=== PATIENT | male | born 1955 | race African-American/Black ===

== ENCOUNTER 2017-06-18 03:59 | Inpatient (IN) | payer OTHER, MEDICAID ==
[2017-06-18] VITALS (10 sets, daily range): BP systolic 168–206; BP diastolic 97–140
[~2017-06-18] VITALS: Ht 172.7 cm; Wt 92.3 kg
[2017-06-18] MEDS ORDERED: HYDRALAZINE 20MG/ML VIAL IV ONE (05:15)
[2017-06-18] MEDS ORDERED: CLONIDINE 0.2MG TABLET PO ONE (05:15)
[2017-06-18 05:36] LABS: BASOPHILS % 0.9 % (0.0-2.0); EOSINOPHILS % 1.8 % (0.0-5.0); HEMATOCRIT. 24.9 % (42.0-52.0); HEMOGLOBIN. 8.3 g/dL (14.0-18.0); LYMPHOCYTES % 15.2 % (20.0-50.0); MEAN CORPUSCULAR HEMOGLOBIN 32.9 pg (28.0-32.0); MEAN CORPUSCULAR VOLUME 98.6 fL (80.0-94.0); MEAN PLATELET VOLUME 9.2 fl (7.4-10.4); MONOCYTES % 6.8 % (2.0-8.0); NEUTROPHILS % 75.3 % (40.0-76.0); PLATELET 250 x1000/uL (130-400); RED BLOOD CELL COUNT 2.52 mill/uL (4.7-6.1); RED CELL DISTRIBUTION WIDTH 14.5 % (11.6-14.6)
[2017-06-18 05:42] LABS: CHLORIDE 96 mEq/L (98-107)
[2017-06-18 05:56] LABS: CARBON DIOXIDE 22 mEq/L (21-32)
[2017-06-18] MEDS ORDERED: ONDANSETRON HCL 4MG/2ML VIAL IV ONE (06:15)
[2017-06-18] MEDS ORDERED: MORPHINE SULFATE 4 MG/ML CPJ (NOT FOR IM USE) IV ONE (06:15)
[2017-06-18] MEDS ORDERED: SODIUM BICARBONATE 8.4% 1 MEQ/ML 50ML SYR IV ONE (06:45)
[2017-06-18] MEDS ORDERED: MAGNESIUM/ALUMINUM HYDROXIDE/SIMETHICONE 30ML UDC PO ONE (06:45)
[2017-06-18] MEDS ORDERED: ALBUTEROL (0.083%) 2.5MG/3ML NEB HHN ONE (06:45)
[2017-06-18] MEDS ORDERED: INSULIN REGULAR (HUMULIN R) 300UNITS/3ML IV ONE (06:45)
[2017-06-18] MEDS ORDERED: SODIUM POLYSTYRENE SULFONATE 15 G/60 ML BOT PO ONE (06:45)
[2017-06-18] MEDS ORDERED: DEXTROSE 50% WATER 50ML SYRINGE IV ONE (06:45)
[2017-06-18] MEDS ORDERED: CALCIUM CHLORIDE 1GM/10ML SYR IV ONE (06:45)
[2017-06-18] MEDS ORDERED: IPRATROPIUM/ALBUTEROL 0.5-3(2.5)MG/3ML NEB INH PRN (10:30)
[2017-06-18] MEDS ORDERED: NITROGLYCERIN 0.4MG TABLET SL SL PRN (10:30)
[2017-06-18] MEDS ORDERED: GUAIFENESIN 200MG/10ML SUGAR FREE UDC PO PRN (10:30)
[2017-06-18] MEDS ORDERED: MAGNESIUM/ALUMINUM HYDROXIDE/SIMETHICONE 30ML UDC PO PRN (10:30)
[2017-06-18] MEDS: ENOXAPARIN 40MG/0.4ML SYR SUBCUT SCH (10:30)
[2017-06-18] MEDS ORDERED: TRAMADOL 50MG TABLET PO PRN (10:30)
[2017-06-18] MEDS ORDERED: ZOLPIDEM TARTRATE 5MG TABLET PO PRN (10:30)
[2017-06-18] MEDS ORDERED: MORPHINE SULFATE 4 MG/ML CPJ (NOT FOR IM USE) IV PRN (10:30)
[2017-06-18] MEDS ORDERED: DOCUSATE SODIUM 100MG CAPSULE PO PRN (10:30)
[2017-06-18] MEDS ORDERED: ONDANSETRON HCL 4MG/2ML VIAL IV PRN (10:30)
[2017-06-18] MEDS ORDERED: ACETAMINOPHEN 325MG TABLET PO PRN (10:30)
[2017-06-18] MEDS ORDERED: LORAZEPAM 0.5MG TABLET PO PRN (10:30)
[2017-06-18] MEDS ORDERED: NA PHOS,M-B/NA PHOS,DI-BA ENEMA 118ML PR PRN (10:30)
[2017-06-18] MEDS ORDERED: DIPHENHYDRAMINE 50MG/ML VIAL IV PRN (10:30)
[2017-06-18] MEDS: SEVELAMER CARBONATE 800 MG TABLET PO SCH ×2 (13:26→17:59)
[2017-06-18] MEDS: HYDRALAZINE HCL 50MG TABLET PO SCH ×2 (13:26→21:43)
[2017-06-18] MEDS: CLONIDINE 0.1MG TABLET PO PRN (15:49)
[2017-06-18 16:59] LABS: CREATINE KINASE MB FRACTION 2.4 ng/mL (0.5-3.6); TROPONIN I 0.12 ng/mL (0.00-0.04)
[2017-06-18] MEDS: AMLODIPINE 10MG TABLET PO SCH (17:11)
[2017-06-18] MEDS ORDERED: EPOETIN ALFA 10000UNITS/ML VIAL SUBCUT SCH (21:00)
[2017-06-18] MEDS: METOPROLOL TARTRATE 25MG TABLET PO SCH (21:43)
[2017-06-18] MEDS: MINOXIDIL 2.5MG TABLET PO SCH (21:44)
[2017-06-18 23:24] LABS: CREATINE KINASE MB FRACTION 1.8 ng/mL (0.5-3.6); TROPONIN I 0.17 ng/mL (0.00-0.04)
[2017-06-19] VITALS (14 sets, daily range): BP systolic 140–179; BP diastolic 60–99
[2017-06-19] MEDS: CLONIDINE 0.1MG TABLET PO PRN (01:08)
[2017-06-19] MEDS: HYDRALAZINE HCL 50MG TABLET PO SCH ×3 (06:27→21:16)
[2017-06-19 07:16] LABS: BASOPHILS % 0.9 % (0.0-2.0); EOSINOPHILS % 2.3 % (0.0-5.0); HEMATOCRIT. 21.7 % (42.0-52.0); HEMOGLOBIN. 7.4 g/dL (14.0-18.0); LYMPHOCYTES % 15.2 % (20.0-50.0); MEAN CORPUSCULAR VOLUME 97.2 fL (80.0-94.0); MEAN PLATELET VOLUME 9.6 fl (7.4-10.4); NEUTROPHILS % 69.6 % (40.0-76.0); PLATELET 188 x1000/uL (130-400); RED BLOOD CELL COUNT 2.23 mill/uL (4.7-6.1); RED CELL DISTRIBUTION WIDTH 14.2 % (11.6-14.6)
[2017-06-19] MEDS: SEVELAMER CARBONATE 800 MG TABLET PO SCH ×3 (08:00→19:04)
[2017-06-19] MEDS: ENOXAPARIN 40MG/0.4ML SYR SUBCUT SCH (09:00)
[2017-06-19] MEDS: MINOXIDIL 2.5MG TABLET PO SCH (09:00)
[2017-06-19] MEDS: FOLIC ACID/VITAMIN B COMP W-C TABLET PO SCH (09:00)
[2017-06-19] MEDS: AMLODIPINE 10MG TABLET PO SCH (09:00)
[2017-06-19] MEDS: METOPROLOL TARTRATE 25MG TABLET PO SCH ×2 (09:00→21:16)
[2017-06-19] MEDS: ASPIRIN 325MG EC TABLET PO SCH (09:00)
[2017-06-19] MEDS: PANTOPRAZOLE SODIUM 40 MG/VIAL IV SCH (09:13)
[2017-06-19 12:37] LABS: HEMATOCRIT 21.9 % (42.0-52.0); HEMOGLOBIN 7.3 g/dL (14.0-18.0)
[2017-06-19] MEDS: MINOXIDIL 10MG TABLET PO SCH (21:17)
[2017-06-20] VITALS (17 sets, daily range): BP systolic 118–165; BP diastolic 62–90
[2017-06-20] MEDS: CLONIDINE 0.1MG TABLET PO PRN (02:18)
[2017-06-20] MEDS: HYDRALAZINE HCL 50MG TABLET PO SCH ×3 (06:55→22:18)
[2017-06-20] MEDS: SEVELAMER CARBONATE 800 MG TABLET PO SCH ×2 (09:00→18:35)
[2017-06-20] MEDS: ASPIRIN 325MG EC TABLET PO SCH (09:00)
[2017-06-20] MEDS: ENOXAPARIN 40MG/0.4ML SYR SUBCUT SCH (09:00)
[2017-06-20] MEDS: PANTOPRAZOLE SODIUM 40 MG/VIAL IV SCH (09:01)
[2017-06-20] MEDS: METOPROLOL TARTRATE 25MG TABLET PO SCH (09:01)
[2017-06-20] MEDS: AMLODIPINE 10MG TABLET PO SCH (09:02)
[2017-06-20] MEDS: FOLIC ACID/VITAMIN B COMP W-C TABLET PO SCH (09:02)
[2017-06-20] MEDS: MINOXIDIL 10MG TABLET PO SCH ×2 (09:12→22:15)
[2017-06-20] MEDS ORDERED: METOPROLOL TARTRATE 25MG TABLET PO NR (09:52)
[2017-06-20 10:00] LABS: BASOPHILS % 1.2 % (0.0-2.0); EOSINOPHILS % 6.3 % (0.0-5.0); HEMATOCRIT. 25.5 % (42.0-52.0); HEMOGLOBIN. 8.5 g/dL (14.0-18.0); LYMPHOCYTES % 12.7 % (20.0-50.0); MEAN CORPUSCULAR HEMOGLOBIN 32.3 pg (28.0-32.0); MEAN CORPUSCULAR VOLUME 97.2 fL (80.0-94.0); MEAN PLATELET VOLUME 9.1 fl (7.4-10.4); MONOCYTES % 12.5 % (2.0-8.0); NEUTROPHILS % 67.3 % (40.0-76.0); PLATELET 219 x1000/uL (130-400); RED BLOOD CELL COUNT 2.62 mill/uL (4.7-6.1); RED CELL DISTRIBUTION WIDTH 14.6 % (11.6-14.6)
[2017-06-20 10:50] LABS: CREATINE KINASE MB FRACTION 1.8 ng/mL (0.5-3.6); TROPONIN I 0.29 ng/mL (0.00-0.04)
[2017-06-20] MEDS: METOPROLOL TARTRATE 50MG TABLET PO SCH (22:15)
[2017-06-21] VITALS: BP 127/71
[2017-06-21 04:00] VITALS: BP 120/69
[2017-06-21 06:00] VITALS: BP 139/76
[2017-06-21] MEDS: HYDRALAZINE HCL 50MG TABLET PO SCH (06:03)
[2017-06-21 08:00] VITALS: BP 143/86
[2017-06-21] MEDS: PANTOPRAZOLE SODIUM 40 MG/VIAL IV SCH (08:53)
[2017-06-21] MEDS: METOPROLOL TARTRATE 50MG TABLET PO SCH (08:53)
[2017-06-21] MEDS: MINOXIDIL 10MG TABLET PO SCH (08:56)
[2017-06-21] MEDS: FOLIC ACID/VITAMIN B COMP W-C TABLET PO SCH (08:56)
[2017-06-21] MEDS: SEVELAMER CARBONATE 800 MG TABLET PO SCH (08:56)
[2017-06-21] MEDS: AMLODIPINE 10MG TABLET PO SCH (08:56)
[2017-06-21] MEDS: ENOXAPARIN 40MG/0.4ML SYR SUBCUT SCH (08:56)
[2017-06-21] MEDS: ASPIRIN 325MG EC TABLET PO SCH (08:57)
[2017-06-21 10:00] VITALS: BP 145/80
[2017-06-21 11:10] VITALS: BP 145/80
[2017-06-25] MEDS ORDERED: NEPVIT PO (12:30)
[2017-06-25] MEDS ORDERED: ASPI-1159 PO (12:30)
[2017-06-25] MEDS ORDERED: DILT240C91 PO (12:30)
[2017-06-25] MEDS ORDERED: HYDR-4134 PO (12:30)
[2017-06-25] MEDS ORDERED: HYDR-4001 PO (12:34)
== END 2017-06-21 11:35 | disposition home or self-care (01) | DRG 291 ==
LOC: ER 04:05 → 5EST 07:03 → EDBEDREQ 07:06 → EDBEDREQSVC 07:06 → ENRESERV 07:40
PROVIDERS: ADMIT Internal Medicine; ATTEND Internal Medicine
PROC: 5A1D70Z Performance of Urinary Filtration, Intermittent, Less than 6 Hours Per Day (ICD-10-PCS; 2017-06-18)
PROC: 30233N1 Transfusion of Nonautologous Red Blood Cells into Peripheral Vein, Percutaneous Approach (ICD-10-PCS; principal; 2017-06-19)
PROC: 5A1D70Z Performance of Urinary Filtration, Intermittent, Less than 6 Hours Per Day (ICD-10-PCS; 2017-06-19)
DX: I13.2 Hypertensive heart and chronic kidney disease with heart failure and with stage 5 chronic kidney disease, or end stage renal disease (principal); I50.33 Acute on chronic diastolic (congestive) heart failure; E87.1 Hypo-osmolality and hyponatremia; N18.6 End stage renal disease; D63.8 Anemia in other chronic diseases classified elsewhere; E87.5 Hyperkalemia; I48.0 Paroxysmal atrial fibrillation; E78.00 Pure hypercholesterolemia, unspecified; Z99.2 Dependence on renal dialysis; Z79.899 Other long term (current) drug therapy; Z86.19 Personal history of other infectious and parasitic diseases
CPT/HCPCS: 36415; 71045; 80048; 80053; 80061; 82550; 82553; 83036; 84484; 85014; 85018; 85025; 86850; 86900; 86920; 93005; 93306; 94640; 96374; 96375; 99285; C9113; J0360; J0885; J1650; J1815; J2270; J2405; J3490; J7030; J7040; J7611; P9016

== ENCOUNTER 2017-06-22 06:46 | Inpatient (IN) | payer BC, MEDICAID, OTHER ==
[~2017-06-22] VITALS: Ht 175.3 cm; Wt 100.7 kg
[2017-06-22] MEDS ORDERED: ASPIRIN 81MG TABLET PO ONE (07:00)
[2017-06-22] MEDS ORDERED: NITROGLYCERIN OINT 1GM/INCH UDPKT TD ONE (07:00)
[2017-06-22] MEDS ORDERED: DILTIAZEM HCL 5MG/ML 5ML VIAL IV ONE (07:00)
[2017-06-22 07:35] LABS: INR 1.1; PARTIAL THROMBOPLASTIN TIME 32.9 sec (23.4-31.0); PROTHROMBIN TIME 11.1 sec (9.4-11.6)
[2017-06-22 07:48] LABS: CARBON DIOXIDE 29 mEq/L (21-32); CHLORIDE 96 mEq/L (98-107)
[2017-06-22 07:49] LABS: BASOPHILS % 0.5 % (0.0-2.0); HEMATOCRIT. 24.7 % (42.0-52.0); HEMOGLOBIN. 8.3 g/dL (14.0-18.0); LYMPHOCYTES % 11.6 % (20.0-50.0); MEAN CORPUSCULAR HEMOGLOBIN 32.7 pg (28.0-32.0); MEAN CORPUSCULAR VOLUME 97.4 fL (80.0-94.0); MEAN PLATELET VOLUME 9.2 fl (7.4-10.4); MONOCYTES % 14.4 % (2.0-8.0); NEUTROPHILS % 70.5 % (40.0-76.0); PLATELET 224 x1000/uL (130-400); RED BLOOD CELL COUNT 2.54 mill/uL (4.7-6.1); RED CELL DISTRIBUTION WIDTH 14.7 % (11.6-14.6)
[2017-06-22 08:01] LABS: TROPONIN I 0.69 ng/mL (0.00-0.04)
[2017-06-22] MEDS ORDERED: HYDROCODONE/ACETAMINOPHEN 5/325MG TABLET PO PRN (11:15)
[2017-06-22] MEDS ORDERED: ONDANSETRON HCL 4MG/2ML VIAL IV PRN (11:15)
[2017-06-22] MEDS ORDERED: ACETAMINOPHEN 325MG TABLET PO PRN (11:15)
[2017-06-22] MEDS ORDERED: MAGNESIUM/ALUMINUM HYDROXIDE/SIMETHICONE 30ML UDC PO PRN (11:15)
[2017-06-22] MEDS ORDERED: DOCUSATE SODIUM 100MG CAPSULE PO PRN (11:15)
[2017-06-22] MEDS ORDERED: IPRATROPIUM/ALBUTEROL 0.5-3(2.5)MG/3ML NEB INH PRN (11:15)
[2017-06-22 15:51] VITALS: BP 142/79
[2017-06-22 16:00] VITALS: BP 137/81
[2017-06-22] MEDS: DILTIAZEM HCL 60MG TABLET PO SCH ×2 (16:03→21:25)
[2017-06-22 17:50] VITALS: BP 139/84
[2017-06-22 20:00] VITALS: BP 131/64
[2017-06-22 20:11] LABS: TROPONIN I 0.67 ng/mL (0.00-0.04)
[2017-06-22 20:14] LABS: CREATINE KINASE MB FRACTION 1.4 ng/mL (0.5-3.6)
[2017-06-22 22:00] VITALS: BP 138/98
[2017-06-22] MEDS: CLONIDINE 0.1MG TABLET PO PRN (22:06)
[2017-06-23] VITALS (14 sets, daily range): BP systolic 118–160; BP diastolic 67–98
[2017-06-23 00:01] LABS: CREATINE KINASE MB FRACTION 1.3 ng/mL (0.5-3.6)
[2017-06-23 00:06] LABS: TROPONIN I 0.6 ng/mL (0.00-0.04)
[2017-06-23] MEDS: DILTIAZEM HCL 60MG TABLET PO SCH ×3 (06:44→21:08)
[2017-06-23 07:18] LABS: BASOPHILS % 0.8 % (0.0-2.0); EOSINOPHILS % 3.4 % (0.0-5.0); HEMATOCRIT. 22.2 % (42.0-52.0); HEMOGLOBIN. 7.4 g/dL (14.0-18.0); LYMPHOCYTES % 12.6 % (20.0-50.0); MEAN CORPUSCULAR HEMOGLOBIN 32.6 pg (28.0-32.0); MEAN CORPUSCULAR VOLUME 97.5 fL (80.0-94.0); MEAN PLATELET VOLUME 9.4 fl (7.4-10.4); MONOCYTES % 14.3 % (2.0-8.0); NEUTROPHILS % 68.9 % (40.0-76.0); PLATELET 212 x1000/uL (130-400); RED BLOOD CELL COUNT 2.28 mill/uL (4.7-6.1); RED CELL DISTRIBUTION WIDTH 14.3 % (11.6-14.6)
[2017-06-23 08:03] LABS: TROPONIN I 0.54 ng/mL (0.00-0.04)
[2017-06-23] MEDS ORDERED: ASPIRIN 81MG EC TABLET PO SCH (09:00)
[2017-06-23] MEDS ORDERED: EPOETIN ALFA 10000UNITS/ML VIAL SUBCUT NR (21:00)
[2017-06-24] VITALS (18 sets, daily range): BP systolic 145–195; BP diastolic 72–122
[2017-06-24] MEDS: CLONIDINE 0.1MG TABLET PO PRN ×2 (05:03→17:33)
[2017-06-24] MEDS: DILTIAZEM HCL 60MG TABLET PO SCH ×3 (06:00→22:34)
[2017-06-24 06:55] LABS: BASOPHILS % 0.4 % (0.0-2.0); EOSINOPHILS % 3.5 % (0.0-5.0); HEMATOCRIT. 23.1 % (42.0-52.0); HEMOGLOBIN. 7.8 g/dL (14.0-18.0); LYMPHOCYTES % 11.2 % (20.0-50.0); MEAN CORPUSCULAR HEMOGLOBIN 32.9 pg (28.0-32.0); MEAN CORPUSCULAR VOLUME 96.8 fL (80.0-94.0); MEAN PLATELET VOLUME 9.5 fl (7.4-10.4); NEUTROPHILS % 70.9 % (40.0-76.0); PLATELET 217 x1000/uL (130-400); RED BLOOD CELL COUNT 2.39 mill/uL (4.7-6.1); RED CELL DISTRIBUTION WIDTH 14.3 % (11.6-14.6)
[2017-06-25] VITALS (16 sets, daily range): BP systolic 152–195; BP diastolic 79–114
[2017-06-25 06:10] LABS: BASOPHILS % 0.8 % (0.0-2.0); EOSINOPHILS % 4.8 % (0.0-5.0); HEMATOCRIT. 23.7 % (42.0-52.0); LYMPHOCYTES % 10.6 % (20.0-50.0); MEAN CORPUSCULAR VOLUME 95.2 fL (80.0-94.0); MEAN PLATELET VOLUME 9.5 fl (7.4-10.4); MONOCYTES % 13.3 % (2.0-8.0); NEUTROPHILS % 70.5 % (40.0-76.0); PLATELET 212 x1000/uL (130-400); RED BLOOD CELL COUNT 2.49 mill/uL (4.7-6.1); RED CELL DISTRIBUTION WIDTH 14.5 % (11.6-14.6)
[2017-06-25] MEDS: DILTIAZEM HCL 60MG TABLET PO SCH ×3 (06:16→14:09)
[2017-06-25] MEDS: CLONIDINE 0.1MG TABLET PO PRN (08:32)
[2017-06-25] MEDS ORDERED: NEPVIT PO (12:30)
[2017-06-25] MEDS ORDERED: DILT240C91 PO (12:30)
[2017-06-25] MEDS ORDERED: ASPI-1159 PO (12:30)
[2017-06-25] MEDS ORDERED: HYDR-4134 PO (12:30)
[2017-06-25] MEDS ORDERED: HYDR-4001 PO (12:34)
[2017-06-25] MEDS ORDERED: EPOETIN ALFA 10000UNITS/ML VIAL SUBCUT NR (21:00)
== END 2017-06-25 20:31 | disposition home or self-care (01) | DRG 308 ==
LOC: ER 07:00 → 3WST 08:24 → EDBEDREQTM 08:36 → EDBEDREQ 08:36 → ENRESERV 14:10
PROVIDERS: ADMIT Internal Medicine; ATTEND Internal Medicine
PROC: 5A1D70Z Performance of Urinary Filtration, Intermittent, Less than 6 Hours Per Day (ICD-10-PCS; principal; 2017-06-24)
PROC: 30233N1 Transfusion of Nonautologous Red Blood Cells into Peripheral Vein, Percutaneous Approach (ICD-10-PCS; 2017-06-24)
PROC: 5A1D70Z Performance of Urinary Filtration, Intermittent, Less than 6 Hours Per Day (ICD-10-PCS; 2017-06-25)
DX: I48.0 Paroxysmal atrial fibrillation (principal); N18.6 End stage renal disease; I13.2 Hypertensive heart and chronic kidney disease with heart failure and with stage 5 chronic kidney disease, or end stage renal disease; I27.20 Pulmonary hypertension, unspecified; I42.0 Dilated cardiomyopathy; I50.42 Chronic combined systolic (congestive) and diastolic (congestive) heart failure; D63.1 Anemia in chronic kidney disease; E78.00 Pure hypercholesterolemia, unspecified; I35.1 Nonrheumatic aortic (valve) insufficiency; Z79.82 Long term (current) use of aspirin; Z99.2 Dependence on renal dialysis
CPT/HCPCS: 36415; 71045; 80048; 80053; 80061; 82270; 82550; 82553; 84443; 84484; 85025; 85610; 85730; 86850; 86900; 86920; 87040; 93005; 93970; 99285; J0885; J3490; P9016

== ENCOUNTER 2017-08-10 05:28 | Inpatient (IN) | payer OTHER, MEDICAID ==
[~2017-08-10] VITALS: Ht 175.3 cm; Wt 92.1 kg
[2017-08-10] VITALS (44 sets, daily range): BP systolic 139–161; BP diastolic 75–90
[~2017-08-10 05:28] MED LIST: ASPI-1159 PO; DILT240C91 PO; HYDR-4001 PO; HYDR-4134 PO; NEPVIT PO
[2017-08-10] MEDS ORDERED: LABETALOL 5MG/ML SYR 20 MG/4 ML SYRINGE IV ONE (06:15)
[2017-08-10] MEDS ORDERED: NICARDIPINE 100 MG in SODIUM CHLORIDE 0.9% 60 ML IV STA ×2 (06:23→06:54)
[2017-08-10] MEDS ORDERED: NICARDIPINE 40MG/200ML PREMIX 200 ML IV ONE (06:46)
[2017-08-10] MEDS ORDERED: PHENYTOIN SODIUM 500 MG in SODIUM CHLORIDE 0.9% 50 ML IV ONE (07:00)
[2017-08-10] MEDS ORDERED: ONDANSETRON HCL 4MG/2ML VIAL IV PRN ×2 (07:15→09:00)
[2017-08-10 07:27] LABS: HEMATOCRIT. 31.5 % (42.0-52.0); HEMOGLOBIN. 10.5 g/dL (14.0-18.0); MEAN CORPUSCULAR HEMOGLOBIN 32.5 pg (28.0-32.0); MEAN CORPUSCULAR VOLUME 97.4 fL (80.0-94.0); MEAN PLATELET VOLUME 8.8 fl (7.4-10.4); PLATELET 217 x1000/uL (130-400); RED BLOOD CELL COUNT 3.23 mill/uL (4.7-6.1); RED CELL DISTRIBUTION WIDTH 14.9 % (11.6-14.6)
[2017-08-10 07:30] LABS: INR 1.1; PARTIAL THROMBOPLASTIN TIME 32.8 sec (23.4-31.0); PROTHROMBIN TIME 10.9 sec (9.4-11.6)
[2017-08-10 07:31] LABS: CHLORIDE 98 mEq/L (98-107)
[2017-08-10 07:37] LABS: PHOSPHORUS 7.8 mg/dL (2.5-4.9)
[2017-08-10 07:59] LABS: PLATELET ESTIMATE NORMAL
[2017-08-10] MEDS ORDERED: CALCIUM CHLORIDE 1GM/10ML SYR IV ONE (08:00)
[2017-08-10] MEDS ORDERED: INSULIN REGULAR (HUMULIN R) 300UNITS/3ML IV ONE (08:00)
[2017-08-10] MEDS ORDERED: DEXTROSE 50% WATER 50ML SYRINGE IV ONE (08:00)
[2017-08-10] MEDS ORDERED: SODIUM BICARBONATE 8.4% 1 MEQ/ML 50ML SYR IV ONE (08:00)
[2017-08-10] MEDS ORDERED: GUAIFENESIN 200MG/10ML SUGAR FREE UDC PO PRN (09:00)
[2017-08-10] MEDS ORDERED: LORAZEPAM 2MG/ML CPJ IV PRN (09:00)
[2017-08-10] MEDS ORDERED: NA PHOS,M-B/NA PHOS,DI-BA ENEMA 118ML PR PRN (09:00)
[2017-08-10] MEDS ORDERED: ACETAMINOPHEN 650MG SUPP PR PRN (09:00)
[2017-08-10] MEDS ORDERED: IPRATROPIUM/ALBUTEROL 0.5-3(2.5)MG/3ML NEB INH PRN (09:00)
[2017-08-10] MEDS ORDERED: DIPHENHYDRAMINE 50MG/ML VIAL IV PRN (09:00)
[2017-08-10] MEDS ORDERED: FAMOTIDINE 20MG/2ML VIAL IV SCH (09:00)
[2017-08-10] MEDS ORDERED: NICARDIPINE 100 MG in SODIUM CHLORIDE 0.9% 60 ML IV PRN (09:34)
[2017-08-10] MEDS ORDERED: FENTANYL CITRATE/PF 50MCG/ML 2ML VIAL IV ONE (09:45)
[2017-08-10] MEDS ORDERED: ONDANSETRON HCL 4MG/2ML VIAL IV ONE (09:45)
[2017-08-10] MEDS: NICARDIPINE 100 MG in SODIUM CHLORIDE 0.9% 60 ML IV PRN ×3 (10:36→21:47)
[2017-08-10] MEDS: FAMOTIDINE 20MG/2ML VIAL IV SCH (12:47)
[2017-08-10] MEDS: DEXAMETHASONE 4MG/ML 1ML VIAL IV SCH ×2 (12:48→17:05)
[2017-08-10] MEDS: DEXT 5%/LACTATED RINGERS 1,000 ML IV SCH ×2 (16:17→22:07)
[2017-08-10] MEDS: PHENYTOIN SODIUM 100MG/2ML VIAL IV SCH ×2 (16:26→21:02)
[2017-08-10] MEDS ORDERED: LABETALOL 5MG/ML SYR 20 MG/4 ML SYRINGE IV NR (19:00)
[2017-08-11] VITALS (79 sets, daily range): BP systolic 131–158; BP diastolic 54–92
[2017-08-11] MEDS: DEXAMETHASONE 4MG/ML 1ML VIAL IV SCH ×5 (00:18→22:51)
[2017-08-11] MEDS: NICARDIPINE 100 MG in SODIUM CHLORIDE 0.9% 60 ML IV PRN ×3 (04:36→22:47)
[2017-08-11] MEDS: PHENYTOIN SODIUM 100MG/2ML VIAL IV SCH (06:17)
[2017-08-11] MEDS: DEXT 5%/LACTATED RINGERS 1,000 ML IV SCH (06:23)
[2017-08-11 09:27] LABS: MEAN CORPUSCULAR HEMOGLOBIN 32.4 pg (28.0-32.0); MEAN PLATELET VOLUME 8.9 fl (7.4-10.4); PLATELET 203 x1000/uL (130-400); RED CELL DISTRIBUTION WIDTH 15.3 % (11.6-14.6)
[2017-08-11] MEDS: FAMOTIDINE 20MG/2ML VIAL IV SCH (09:59)
[2017-08-11] MEDS: DOCUSATE SODIUM 250MG CAPSULE PO SCH (10:30)
[2017-08-11] MEDS: HYDRALAZINE HCL 25MG TABLET PO SCH ×2 (12:45→21:14)
[2017-08-11] MEDS: DILTIAZEM HCL 240MG ER (24HR) PO SCH (12:46)
[2017-08-11 12:52] LABS: PLATELET ESTIMATE NORMAL
[2017-08-11] MEDS: PHENYTOIN SODIUM EXTENDED 100MG CAPSULE PO SCH ×2 (13:39→21:14)
[2017-08-11] MEDS: MINOXIDIL 2.5MG TABLET PO SCH (21:35)
[2017-08-12] VITALS (91 sets, daily range): BP systolic 128–174; BP diastolic 52–100
[2017-08-12] MEDS: PHENYTOIN SODIUM EXTENDED 100MG CAPSULE PO SCH ×3 (05:12→21:44)
[2017-08-12] MEDS: HYDRALAZINE HCL 25MG TABLET PO SCH ×3 (05:12→21:44)
[2017-08-12] MEDS: DEXAMETHASONE 4MG/ML 1ML VIAL IV SCH (05:12)
[2017-08-12 05:46] LABS: HEMATOCRIT. 30.2 % (42.0-52.0); HEMOGLOBIN. 10.3 g/dL (14.0-18.0); MEAN CORPUSCULAR HEMOGLOBIN 33.1 pg (28.0-32.0); MEAN CORPUSCULAR VOLUME 96.8 fL (80.0-94.0); MEAN PLATELET VOLUME 9.3 fl (7.4-10.4); PLATELET 245 x1000/uL (130-400); RED BLOOD CELL COUNT 3.12 mill/uL (4.7-6.1); RED CELL DISTRIBUTION WIDTH 14.9 % (11.6-14.6)
[2017-08-12] MEDS: MINOXIDIL 2.5MG TABLET PO SCH ×2 (08:05→20:37)
[2017-08-12] MEDS: DOCUSATE SODIUM 250MG CAPSULE PO SCH (08:05)
[2017-08-12] MEDS: DILTIAZEM HCL 240MG ER (24HR) PO SCH (08:05)
[2017-08-12] MEDS: FAMOTIDINE 20MG/2ML VIAL IV SCH (08:05)
[2017-08-12 08:32] LABS: PLATELET ESTIMATE NORMAL
[2017-08-12] MEDS: NICARDIPINE 100 MG in SODIUM CHLORIDE 0.9% 60 ML IV PRN (09:50)
[2017-08-12] MEDS: CLONIDINE 0.1MG TABLET PO PRN ×3 (12:03→21:44)
[2017-08-12] MEDS ORDERED: MINOXIDIL 2.5MG TABLET PO SCH (12:45)
[2017-08-12] MEDS ORDERED: DEXAMETHASONE 4MG/ML 1ML VIAL IV SCH (18:00)
[2017-08-12] MEDS: ATORVASTATIN CALCIUM 20MG TABLET PO SCH (21:00)
[2017-08-12] MEDS: HYDRALAZINE HCL 50MG TABLET PO SCH (22:00)
[2017-08-13 04:00] VITALS: BP 172/88
[2017-08-13] MEDS ORDERED: DEXAMETHASONE 4MG/ML 1ML VIAL IV SCH (06:00)
[2017-08-13 07:09] LABS: HEMATOCRIT. 29.7 % (42.0-52.0); MEAN CORPUSCULAR HEMOGLOBIN 32.7 pg (28.0-32.0); MEAN PLATELET VOLUME 9.3 fl (7.4-10.4); PLATELET 235 x1000/uL (130-400); RED BLOOD CELL COUNT 3.07 mill/uL (4.7-6.1); RED CELL DISTRIBUTION WIDTH 14.9 % (11.6-14.6)
[2017-08-13] MEDS: PHENYTOIN SODIUM EXTENDED 100MG CAPSULE PO SCH ×3 (07:10→22:01)
[2017-08-13] MEDS: HYDRALAZINE HCL 50MG TABLET PO SCH ×3 (07:12→22:01)
[2017-08-13] MEDS: DOCUSATE SODIUM 250MG CAPSULE PO SCH (07:49)
[2017-08-13] MEDS: DILTIAZEM HCL 240MG ER (24HR) PO SCH ×2 (07:49→11:39)
[2017-08-13] MEDS: MINOXIDIL 2.5MG TABLET PO SCH ×3 (07:50→21:03)
[2017-08-13 08:00] VITALS: BP 151/100
[2017-08-13] MEDS: FAMOTIDINE 20MG/2ML VIAL IV SCH ×2 (08:50→10:28)
[2017-08-13 12:00] VITALS: BP 193/117
[2017-08-13 14:20] VITALS: BP 177/107
[2017-08-13 15:58] LABS: PLATELET ESTIMATE NORMAL
[2017-08-13 16:00] VITALS: BP 170/88
[2017-08-13 20:00] VITALS: BP 163/88
[2017-08-13] MEDS ORDERED: MINOXIDIL 10MG TABLET PO SCH (21:00)
[2017-08-13] MEDS: ATORVASTATIN CALCIUM 20MG TABLET PO SCH ×2 (21:02→21:08)
[2017-08-14] VITALS: BP 159/80
[2017-08-14 04:00] VITALS: BP 171/86
[2017-08-14] MEDS: HYDRALAZINE HCL 50MG TABLET PO SCH (05:58)
[2017-08-14] MEDS: PHENYTOIN SODIUM EXTENDED 100MG CAPSULE PO SCH (05:58)
[2017-08-14 08:00] VITALS: BP 156/82
[2017-08-14] MEDS: FAMOTIDINE 20MG/2ML VIAL IV SCH (08:40)
[2017-08-14] MEDS: MINOXIDIL 2.5MG TABLET PO SCH (08:41)
[2017-08-14] MEDS: DOCUSATE SODIUM 250MG CAPSULE PO SCH ×2 (08:41→08:47)
[2017-08-14] MEDS: DILTIAZEM HCL 240MG ER (24HR) PO SCH (08:42)
[2017-08-14] MEDS ORDERED: MINOXIDIL 2.5MG TABLET PO NR (10:30)
[2017-08-14 10:47] VITALS: BP 156/82
[2017-08-14] MEDS ORDERED: MINOXIDIL 10MG TABLET PO SCH (21:00)
== END 2017-08-14 12:00 | disposition home or self-care (01) | DRG 64 ==
LOC: ER 05:28 → MICUSO 06:55 → EDBEDREQ 07:12 → EDBEDREQTM 07:12 → SUPCPDRO 08:48 → ENRESERV 12:21 → 7WST 08-12 22:28
PROVIDERS: ADMIT Internal Medicine; ATTEND Internal Medicine
PROC: 5A1D70Z Performance of Urinary Filtration, Intermittent, Less than 6 Hours Per Day (ICD-10-PCS; principal; 2017-08-10)
PROC: 5A1D70Z Performance of Urinary Filtration, Intermittent, Less than 6 Hours Per Day (ICD-10-PCS; 2017-08-11)
PROC: 5A1D70Z Performance of Urinary Filtration, Intermittent, Less than 6 Hours Per Day (ICD-10-PCS; 2017-08-13)
DX: I61.1 Nontraumatic intracerebral hemorrhage in hemisphere, cortical (principal); N18.6 End stage renal disease; I13.2 Hypertensive heart and chronic kidney disease with heart failure and with stage 5 chronic kidney disease, or end stage renal disease; I27.20 Pulmonary hypertension, unspecified; E87.1 Hypo-osmolality and hyponatremia; E87.5 Hyperkalemia; I16.1 Hypertensive emergency; I50.42 Chronic combined systolic (congestive) and diastolic (congestive) heart failure; D63.8 Anemia in other chronic diseases classified elsewhere; E78.5 Hyperlipidemia, unspecified; H54.7 Unspecified visual loss; I48.0 Paroxysmal atrial fibrillation; Z99.2 Dependence on renal dialysis; Z79.82 Long term (current) use of aspirin; Z79.899 Other long term (current) drug therapy
CPT/HCPCS: 36415; 70450; 70551; 71045; 80048; 80053; 80061; 82962; 83036; 83690; 83721; 83735; 84100; 84443; 84484; 85025; 85610; 85730; 93005; 93970; 96374; 96375; 97162; 97166; 97530; 99291; A6261; J1100; J1165; J1200; J1815; J2405; J3010; J3490; J7030; J7050

== ENCOUNTER 2018-06-04 05:57 | Inpatient (IN) | payer MEDICARE, MEDICAID ==
[~2018-06-04] VITALS: Ht 175.3 cm; Wt 95.3 kg
[2018-06-04] MEDS ORDERED: CLONIDINE 0.3MG TABLET PO ONE (07:45)
[2018-06-04 08:00] LABS: EOSINOPHILS % 3.3 % (0.0-5.0); HEMATOCRIT. 25.4 % (42.0-52.0); HEMOGLOBIN. 8.6 g/dL (14.0-18.0); LYMPHOCYTES % 9.9 % (20.0-50.0); MEAN CORPUSCULAR VOLUME 100.9 fL (80.0-94.0); MEAN PLATELET VOLUME 9.4 fl (7.4-10.4); MONOCYTES % 6.9 % (2.0-8.0); NEUTROPHILS % 78.9 % (40.0-76.0); PLATELET 240 x1000/uL (130-400); RED BLOOD CELL COUNT 2.51 mill/uL (4.7-6.1); RED CELL DISTRIBUTION WIDTH 13.6 % (11.6-14.6)
[2018-06-04 08:03] LABS: CHLORIDE 96 mEq/L (98-107)
[2018-06-04 12:00] VITALS: BP 193/131
[2018-06-04] MEDS ORDERED: CLON0.1T14 MT (12:26)
[2018-06-04] MEDS ORDERED: DOCUSATE SODIUM 100MG CAPSULE PO PRN (13:00)
[2018-06-04] MEDS: ENOXAPARIN 30MG/0.3ML SYR SUBCUT SCH (13:00)
[2018-06-04] MEDS ORDERED: MAGNESIUM/ALUMINUM HYDROXIDE/SIMETHICONE 30ML UDC PO PRN (13:00)
[2018-06-04] MEDS ORDERED: ACETAMINOPHEN 325MG TABLET PO PRN (13:00)
[2018-06-04] MEDS ORDERED: GUAIFENESIN 200MG/10ML SUGAR FREE UDC PO PRN (13:00)
[2018-06-04] MEDS ORDERED: ONDANSETRON HCL 4MG/2ML INJ IV PRN (13:00)
[2018-06-04] MEDS ORDERED: TRAMADOL 50MG TABLET PO PRN (13:00)
[2018-06-04] MEDS ORDERED: DIPHENHYDRAMINE 50MG/ML VIAL IV PRN (13:00)
[2018-06-04] MEDS ORDERED: IPRATROPIUM/ALBUTEROL 0.5-3(2.5)MG/3ML NEB INH PRN (13:00)
[2018-06-04] MEDS ORDERED: LORAZEPAM 0.5MG TABLET PO PRN (13:00)
[2018-06-04] MEDS: DILTIAZEM HCL 180MG CAPSULE CD 24HR PO SCH (13:29)
[2018-06-04] MEDS: CLONIDINE 0.2MG TABLET PO SCH ×2 (13:30→20:07)
[2018-06-04] MEDS: FAMOTIDINE 20MG TABLET PO SCH (13:32)
[2018-06-04] MEDS: HYDRALAZINE HCL 50MG TABLET PO SCH ×2 (13:32→23:01)
[2018-06-04] MEDS: SEVELAMER CARBONATE 800 MG TABLET PO SCH ×2 (13:32→17:58)
[2018-06-04] MEDS: AMLODIPINE 10MG TABLET PO SCH (13:33)
[2018-06-04 16:00] VITALS: BP 173/114
[2018-06-04 20:00] VITALS: BP 199/124
[2018-06-04 20:07] VITALS: BP 203/121
[2018-06-04] MEDS ORDERED: ZOLPIDEM TARTRATE 5MG TABLET PO PRN (21:00)
[2018-06-04] MEDS ORDERED: EPOETIN ALFA 10000UNITS/ML VIAL SUBCUT SCH (21:00)
[2018-06-04 23:01] VITALS: BP 180/100
[2018-06-04] MEDS: MINOXIDIL 2.5MG TABLET PO SCH (23:01)
[2018-06-04] MEDS: GUAIFENESIN 600MG ER TABLET PO SCH ×2 (23:01→23:16)
[2018-06-05] VITALS (7 sets, daily range): BP systolic 154–200; BP diastolic 98–125
[2018-06-05 00:46] LABS: CREATINE KINASE MB FRACTION 1.4 ng/mL (0.5-3.6)
[2018-06-05] MEDS: HYDRALAZINE HCL 50MG TABLET PO SCH ×3 (05:14→20:15)
[2018-06-05] MEDS: CLONIDINE 0.2MG TABLET PO SCH ×3 (05:15→20:15)
[2018-06-05] MEDS: ENOXAPARIN 30MG/0.3ML SYR SUBCUT SCH (08:57)
[2018-06-05] MEDS: ASPIRIN 325MG EC TABLET PO SCH (08:57)
[2018-06-05] MEDS: AMLODIPINE 10MG TABLET PO SCH (09:16)
[2018-06-05] MEDS: DILTIAZEM HCL 180MG CAPSULE CD 24HR PO SCH (09:17)
[2018-06-05] MEDS: SEVELAMER CARBONATE 800 MG TABLET PO SCH ×3 (09:18→18:48)
[2018-06-05] MEDS: MINOXIDIL 2.5MG TABLET PO SCH ×2 (09:18→20:15)
[2018-06-05] MEDS: FOLIC ACID/VITAMIN B COMP W-C TABLET PO SCH (09:19)
[2018-06-05] MEDS: FAMOTIDINE 20MG TABLET PO SCH (09:19)
[2018-06-05] MEDS: GUAIFENESIN 600MG ER TABLET PO SCH (20:16)
[2018-06-06 00:12] VITALS: BP 163/96
[2018-06-06 04:00] VITALS: BP 174/0
[2018-06-06] MEDS: CLONIDINE 0.2MG TABLET PO SCH ×3 (06:12→20:39)
[2018-06-06] MEDS: HYDRALAZINE HCL 50MG TABLET PO SCH ×3 (06:12→20:39)
[2018-06-06 07:32] VITALS: BP 160/96
[2018-06-06] MEDS: ASPIRIN 325MG EC TABLET PO SCH (09:00)
[2018-06-06] MEDS: ENOXAPARIN 30MG/0.3ML SYR SUBCUT SCH (09:00)
[2018-06-06] MEDS: GUAIFENESIN 600MG ER TABLET PO SCH ×2 (09:00→20:39)
[2018-06-06] MEDS: AMLODIPINE 10MG TABLET PO SCH (09:09)
[2018-06-06] MEDS: SEVELAMER CARBONATE 800 MG TABLET PO SCH ×3 (09:09→18:37)
[2018-06-06] MEDS: DILTIAZEM HCL 180MG CAPSULE CD 24HR PO SCH (09:10)
[2018-06-06] MEDS: MINOXIDIL 2.5MG TABLET PO SCH ×2 (09:10→20:39)
[2018-06-06] MEDS: FAMOTIDINE 20MG TABLET PO SCH (09:10)
[2018-06-06] MEDS: FOLIC ACID/VITAMIN B COMP W-C TABLET PO SCH (09:10)
[2018-06-06 12:00] VITALS: BP 154/90
[2018-06-06 16:00] VITALS: BP 151/98
[2018-06-06 20:00] VITALS: BP 128/69
[2018-06-07] VITALS: BP 140/74
[2018-06-07 04:00] VITALS: BP 150/79
[2018-06-07] MEDS: CLONIDINE 0.2MG TABLET PO SCH ×3 (06:06→21:20)
[2018-06-07] MEDS: HYDRALAZINE HCL 50MG TABLET PO SCH ×3 (06:06→21:20)
[2018-06-07 08:00] VITALS: BP 140/84
[2018-06-07 08:13] LABS: BASOPHILS % 1.3 % (0.0-2.0); EOSINOPHILS % 6.2 % (0.0-5.0); HEMATOCRIT. 24.4 % (42.0-52.0); HEMOGLOBIN. 8.4 g/dL (14.0-18.0); LYMPHOCYTES % 13.4 % (20.0-50.0); MEAN CORPUSCULAR HEMOGLOBIN 34.2 pg (28.0-32.0); MEAN PLATELET VOLUME 9.2 fl (7.4-10.4); MONOCYTES % 10.9 % (2.0-8.0); NEUTROPHILS % 68.2 % (40.0-76.0); PLATELET 253 x1000/uL (130-400); RED BLOOD CELL COUNT 2.44 mill/uL (4.7-6.1); RED CELL DISTRIBUTION WIDTH 13.7 % (11.6-14.6)
[2018-06-07] MEDS: AMLODIPINE 10MG TABLET PO SCH (09:00)
[2018-06-07] MEDS: ENOXAPARIN 30MG/0.3ML SYR SUBCUT SCH (09:00)
[2018-06-07] MEDS: MINOXIDIL 2.5MG TABLET PO SCH ×2 (09:00→21:00)
[2018-06-07] MEDS: GUAIFENESIN 600MG ER TABLET PO SCH ×2 (09:00→21:00)
[2018-06-07] MEDS: FOLIC ACID/VITAMIN B COMP W-C TABLET PO SCH (09:06)
[2018-06-07] MEDS: SEVELAMER CARBONATE 800 MG TABLET PO SCH ×3 (09:06→18:42)
[2018-06-07] MEDS: FAMOTIDINE 20MG TABLET PO SCH (09:07)
[2018-06-07] MEDS: ASPIRIN 325MG EC TABLET PO SCH (09:07)
[2018-06-07] MEDS: DILTIAZEM HCL 180MG CAPSULE CD 24HR PO SCH (09:19)
[2018-06-07 12:00] VITALS: BP 141/87
[2018-06-07 16:00] VITALS: BP 137/77
[2018-06-07 20:00] VITALS: BP 162/92
[2018-06-08] VITALS: BP 134/83
[2018-06-08 04:00] VITALS: BP 167/92
[2018-06-08] MEDS: HYDRALAZINE HCL 50MG TABLET PO SCH (06:13)
[2018-06-08] MEDS: CLONIDINE 0.2MG TABLET PO SCH (06:13)
[2018-06-08 08:03] VITALS: BP 154/95
[2018-06-08] MEDS: ENOXAPARIN 30MG/0.3ML SYR SUBCUT SCH (08:52)
[2018-06-08] MEDS: FOLIC ACID/VITAMIN B COMP W-C TABLET PO SCH (08:54)
[2018-06-08] MEDS: ASPIRIN 325MG EC TABLET PO SCH (08:54)
[2018-06-08] MEDS: SEVELAMER CARBONATE 800 MG TABLET PO SCH (08:54)
[2018-06-08] MEDS: AMLODIPINE 10MG TABLET PO SCH (08:54)
[2018-06-08] MEDS: MINOXIDIL 2.5MG TABLET PO SCH (08:55)
[2018-06-08] MEDS: FAMOTIDINE 20MG TABLET PO SCH (08:55)
[2018-06-08] MEDS: DILTIAZEM HCL 180MG CAPSULE CD 24HR PO SCH (08:55)
[2018-06-08] MEDS: GUAIFENESIN 600MG ER TABLET PO SCH (08:55)
[2018-06-08 11:14] VITALS: BP 164/78
[2018-06-08 12:00] VITALS: BP 164/78
[2018-07-05] MEDS ORDERED: LISI-186 MT ×2 (15:13→15:14)
[2018-07-05] MEDS ORDERED: COR3 MT (15:14)
[2018-07-05] MEDS ORDERED: CLON0.1T14 MT (15:15)
[2018-07-05] MEDS ORDERED: ATOR10TA MT (15:17)
== END 2018-06-08 13:12 | disposition home or self-care (01) | DRG 291 ==
LOC: ER 06:41 → 7WST 11:09 → EDBEDREQ 11:16 → EDBEDREQTM 11:16 → ENRESERV 11:26
PROVIDERS: ADMIT Internal Medicine; ATTEND Internal Medicine
PROC: 5A1D70Z Performance of Urinary Filtration, Intermittent, Less than 6 Hours Per Day (ICD-10-PCS; principal; 2018-06-04)
PROC: 5A1D70Z Performance of Urinary Filtration, Intermittent, Less than 6 Hours Per Day (ICD-10-PCS; 2018-06-05)
PROC: 5A1D70Z Performance of Urinary Filtration, Intermittent, Less than 6 Hours Per Day (ICD-10-PCS; 2018-06-06)
DX: I13.2 Hypertensive heart and chronic kidney disease with heart failure and with stage 5 chronic kidney disease, or end stage renal disease (principal); N18.6 End stage renal disease; I50.33 Acute on chronic diastolic (congestive) heart failure; I48.0 Paroxysmal atrial fibrillation; D63.8 Anemia in other chronic diseases classified elsewhere; Z99.2 Dependence on renal dialysis; Z91.15 Patient's noncompliance with renal dialysis; Z79.899 Other long term (current) drug therapy; Z88.5 Allergy status to narcotic agent
CPT/HCPCS: 36415; 71045; 80048; 82550; 82553; 83036; 84484; 93005; 93306; 93970; 96372; 97165; 99285; J0885; J1650

== ENCOUNTER 2018-06-11 07:29 | Inpatient (IN) | payer OTHER, MEDICAID ==
[~2018-06-11] VITALS: Ht 175.3 cm; Wt 87.1 kg
[~2018-06-11 07:29] MED LIST changes: +CLON0.1T14 MT
[2018-06-11 08:56] LABS: BASOPHILS % 0.9 % (0.0-2.0); EOSINOPHILS % 1.9 % (0.0-5.0); HEMATOCRIT. 26.1 % (42.0-52.0); HEMOGLOBIN. 8.7 g/dL (14.0-18.0); LYMPHOCYTES % 7.3 % (20.0-50.0); MEAN CORPUSCULAR HEMOGLOBIN 33.9 pg (28.0-32.0); MEAN CORPUSCULAR VOLUME 101.2 fL (80.0-94.0); MEAN PLATELET VOLUME 8.7 fl (7.4-10.4); MONOCYTES % 12.3 % (2.0-8.0); NEUTROPHILS % 77.6 % (40.0-76.0); PLATELET 292 x1000/uL (130-400); RED BLOOD CELL COUNT 2.58 mill/uL (4.7-6.1); RED CELL DISTRIBUTION WIDTH 14.8 % (11.6-14.6)
[2018-06-11 09:01] LABS: CHLORIDE 99 mEq/L (98-107)
[2018-06-11 09:02] LABS: PARTIAL THROMBOPLASTIN TIME 35.6 sec (23.4-31.0); PROTHROMBIN TIME 10.4 sec (9.1-11.1)
[2018-06-11 09:13] LABS: T4 FREE 1.19 ng/dL (0.76-1.46)
[2018-06-11] MEDS ORDERED: ASPIRIN 81MG TABLET PO ONE (11:00)
[2018-06-11 14:29] VITALS: BP 177/93
[2018-06-11 14:31] VITALS: BP 177/93
[2018-06-11] MEDS: ASPIRIN 81MG EC TABLET PO SCH (14:45)
[2018-06-11] MEDS ORDERED: DIPHENHYDRAMINE 50MG/ML VIAL IV PRN (14:45)
[2018-06-11] MEDS ORDERED: MAGNESIUM/ALUMINUM HYDROXIDE/SIMETHICONE 30ML UDC PO PRN (14:45)
[2018-06-11] MEDS ORDERED: ONDANSETRON HCL 4MG/2ML INJ IV PRN (14:45)
[2018-06-11] MEDS ORDERED: ACETAMINOPHEN 325MG TABLET PO PRN (14:45)
[2018-06-11] MEDS ORDERED: CLONIDINE 0.1MG TABLET PO PRN (14:45)
[2018-06-11] MEDS: ENOXAPARIN 30MG/0.3ML SYR SUBCUT SCH (15:00)
[2018-06-11] MEDS: CLONIDINE 0.2MG TABLET PO SCH ×2 (15:37→22:09)
[2018-06-11 16:00] VITALS: BP 174/87
[2018-06-11] MEDS ORDERED: HYDROCODONE/ACETAMINOPHEN 5/325MG TABLET PO PRN (18:15)
[2018-06-11 20:00] VITALS: BP 156/91
[2018-06-11] MEDS ORDERED: EPOETIN ALFA 10000UNITS/ML VIAL SUBCUT SCH (21:00)
[2018-06-11] MEDS ORDERED: ATORVASTATIN CALCIUM 20MG TABLET PO SCH (21:00)
[2018-06-11] MEDS: AMLODIPINE 5MG TABLET PO SCH (21:13)
[2018-06-11] MEDS: METOPROLOL TARTRATE 50MG TABLET PO SCH (21:13)
[2018-06-11] MEDS: SODIUM CHLORIDE 0.9% INJ 3ML FLUSH IVF SCH (22:10)
[2018-06-12] VITALS: BP 108/58
[2018-06-12 04:00] VITALS: BP 142/86
[2018-06-12] MEDS: SODIUM CHLORIDE 0.9% INJ 3ML FLUSH IVF SCH ×2 (06:06→14:00)
[2018-06-12] MEDS: CLONIDINE 0.2MG TABLET PO SCH ×2 (06:06→17:04)
[2018-06-12 07:11] LABS: BASOPHILS % 1.1 % (0.0-2.0); EOSINOPHILS % 3.8 % (0.0-5.0); HEMATOCRIT. 23.6 % (42.0-52.0); LYMPHOCYTES % 12.3 % (20.0-50.0); MEAN CORPUSCULAR HEMOGLOBIN 34.3 pg (28.0-32.0); MEAN CORPUSCULAR VOLUME 101.5 fL (80.0-94.0); MONOCYTES % 13.2 % (2.0-8.0); NEUTROPHILS % 69.6 % (40.0-76.0); PLATELET 255 x1000/uL (130-400); RED BLOOD CELL COUNT 2.32 mill/uL (4.7-6.1)
[2018-06-12 11:50] VITALS: BP 162/89
[2018-06-12] MEDS: ENOXAPARIN 30MG/0.3ML SYR SUBCUT SCH (15:00)
[2018-06-12] MEDS: AMLODIPINE 5MG TABLET PO SCH (15:35)
[2018-06-12] MEDS: ASPIRIN 81MG EC TABLET PO SCH (15:35)
[2018-06-12] MEDS: METOPROLOL TARTRATE 50MG TABLET PO SCH (15:36)
[2018-06-12 15:51] VITALS: BP 170/84
[2018-06-12 16:08] VITALS: BP 170/84
[2018-07-05] MEDS ORDERED: LISI-186 MT ×2 (15:13→15:14)
[2018-07-05] MEDS ORDERED: COR3 MT (15:14)
[2018-07-05] MEDS ORDERED: CLON0.1T14 MT (15:15)
[2018-07-05] MEDS ORDERED: ATOR10TA MT (15:17)
== END 2018-06-12 17:40 | disposition home or self-care (01) | DRG 308 ==
LOC: ER 07:52 → CANRESERV 10:55 → ENRESERV 10:55 → CANRESERV 11:06 → ENRESERV 11:06 → 6WST 11:08 → EDBEDREQ 11:11 → ENRESERV 12:12
PROVIDERS: ADMIT Internal Medicine; ATTEND Internal Medicine
PROC: 5A1D70Z Performance of Urinary Filtration, Intermittent, Less than 6 Hours Per Day (ICD-10-PCS; principal; 2018-06-12)
DX: I48.0 Paroxysmal atrial fibrillation (principal); N18.6 End stage renal disease; I50.22 Chronic systolic (congestive) heart failure; I13.2 Hypertensive heart and chronic kidney disease with heart failure and with stage 5 chronic kidney disease, or end stage renal disease; D64.9 Anemia, unspecified; E78.00 Pure hypercholesterolemia, unspecified; Z82.49 Family history of ischemic heart disease and other diseases of the circulatory system; Z79.82 Long term (current) use of aspirin; Z79.899 Other long term (current) drug therapy; Z88.5 Allergy status to narcotic agent; Z99.2 Dependence on renal dialysis
CPT/HCPCS: 36415; 71045; 80048; 83735; 84439; 84443; 84484; 93005; 96372; 99285; J0885; J1650

== ENCOUNTER 2018-06-16 10:16 | Inpatient (IN) | payer OTHER, MEDICAID ==
[~2018-06-16] VITALS: Ht 175.3 cm; Wt 87.1 kg
[2018-06-16] MEDS ORDERED: ASPIRIN 81MG TABLET PO ONE (11:15)
[2018-06-16 11:55] LABS: BASOPHILS % 0.9 % (0.0-2.0); EOSINOPHILS % 2.5 % (0.0-5.0); HEMATOCRIT. 26.1 % (42.0-52.0); HEMOGLOBIN. 8.8 g/dL (14.0-18.0); LYMPHOCYTES % 10.3 % (20.0-50.0); MEAN CORPUSCULAR VOLUME 98.2 fL (80.0-94.0); MONOCYTES % 11.5 % (2.0-8.0); NEUTROPHILS % 74.8 % (40.0-76.0); PLATELET 290 x1000/uL (130-400); RED BLOOD CELL COUNT 2.66 mill/uL (4.7-6.1); RED CELL DISTRIBUTION WIDTH 14.8 % (11.6-14.6)
[2018-06-16 12:02] LABS: CHLORIDE 96 mEq/L (98-107)
[2018-06-16 12:13] LABS: D-DIMER 0.75 mg/L FEU (<0.50); INR 1.1; PROTHROMBIN TIME 10.7 sec (9.1-11.1)
[2018-06-16] MEDS ORDERED: SODIUM CHLORIDE 0.9% 1,000 ML IV ONE (13:12)
[2018-06-16] MEDS ORDERED: GUAIFENESIN 200MG/10ML SUGAR FREE UDC PO PRN (15:15)
[2018-06-16] MEDS ORDERED: ZOLPIDEM TARTRATE 5MG TABLET PO PRN (15:15)
[2018-06-16] MEDS ORDERED: CLONIDINE 0.1MG TABLET PO PRN (15:15)
[2018-06-16] MEDS ORDERED: DOCUSATE SODIUM 100MG CAPSULE PO PRN (15:15)
[2018-06-16] MEDS ORDERED: NITROGLYCERIN 0.4MG TABLET SL SL PRN (15:15)
[2018-06-16] MEDS ORDERED: LORAZEPAM 1MG TABLET PO PRN (15:15)
[2018-06-16] MEDS ORDERED: DIPHENHYDRAMINE 50MG/ML VIAL IV PRN (15:15)
[2018-06-16] MEDS ORDERED: ONDANSETRON HCL 4MG/2ML INJ IV PRN (15:15)
[2018-06-16] MEDS ORDERED: ACETAMINOPHEN 325MG TABLET PO PRN (15:15)
[2018-06-16] MEDS ORDERED: MAGNESIUM/ALUMINUM HYDROXIDE/SIMETHICONE 30ML UDC PO PRN (15:15)
[2018-06-16] MEDS ORDERED: TRAMADOL 50MG TABLET PO PRN (15:15)
[2018-06-16 23:32] LABS: CREATINE KINASE MB FRACTION 2.6 ng/mL (0.5-3.6)
[2018-06-16] MEDS ORDERED: MINOXIDIL 2.5MG TABLET PO NR (23:45)
[2018-06-16] MEDS ORDERED: FAMOTIDINE 20MG TABLET PO NR (23:45)
[2018-06-17] MEDS: METOPROLOL TARTRATE 25MG TABLET PO SCH ×3 (00:10→21:06)
[2018-06-17 01:30] VITALS: BP 183/120
[2018-06-17 02:00] VITALS: BP 198/100
[2018-06-17] MEDS ORDERED: IPRATROPIUM/ALBUTEROL 0.5-3(2.5)MG/3ML NEB HHN SCH (04:00)
[2018-06-17 08:00] VITALS: BP 153/85
[2018-06-17] MEDS: ENOXAPARIN 30MG/0.3ML SYR SUBCUT SCH (09:00)
[2018-06-17] MEDS: ASPIRIN 325MG EC TABLET PO SCH (10:04)
[2018-06-17] MEDS: SEVELAMER CARBONATE 800 MG TABLET PO SCH ×3 (10:04→18:08)
[2018-06-17] MEDS: MINOXIDIL 2.5MG TABLET PO SCH ×2 (10:05→21:06)
[2018-06-17] MEDS: FOLIC ACID/VITAMIN B COMP W-C TABLET PO SCH (10:10)
[2018-06-17] MEDS ORDERED: CLONIDINE 0.2MG TABLET PO PRN (10:45)
[2018-06-17] MEDS ORDERED: CLONIDINE 0.1MG TABLET PO PRN (10:45)
[2018-06-17 11:58] LABS: CREATINE KINASE MB FRACTION 1.4 ng/mL (0.5-3.6)
[2018-06-17 12:00] VITALS: BP 157/67
[2018-06-17] MEDS: HYDRALAZINE HCL 50MG TABLET PO SCH ×2 (14:05→21:05)
[2018-06-17 16:00] VITALS: BP 149/88
[2018-06-17 20:00] VITALS: BP 149/80
[2018-06-17] MEDS: FAMOTIDINE 20MG TABLET PO SCH (21:05)
[2018-06-18] VITALS: BP 150/89
[2018-06-18 04:00] VITALS: BP 159/90
[2018-06-18] MEDS: HYDRALAZINE HCL 50MG TABLET PO SCH ×3 (06:12→23:32)
[2018-06-18 07:30] LABS: BASOPHILS % 0.9 % (0.0-2.0); EOSINOPHILS % 4.9 % (0.0-5.0); HEMATOCRIT. 25.3 % (42.0-52.0); HEMOGLOBIN. 8.5 g/dL (14.0-18.0); LYMPHOCYTES % 13.8 % (20.0-50.0); MEAN CORPUSCULAR HEMOGLOBIN 33.6 pg (28.0-32.0); MEAN CORPUSCULAR VOLUME 99.7 fL (80.0-94.0); MEAN PLATELET VOLUME 8.9 fl (7.4-10.4); MONOCYTES % 11.4 % (2.0-8.0); PLATELET 273 x1000/uL (130-400); RED BLOOD CELL COUNT 2.54 mill/uL (4.7-6.1); RED CELL DISTRIBUTION WIDTH 14.9 % (11.6-14.6)
[2018-06-18 08:00] VITALS: BP 138/99
[2018-06-18 08:04] LABS: CREATINE KINASE MB FRACTION 1.2 ng/mL (0.5-3.6)
[2018-06-18] MEDS: MINOXIDIL 2.5MG TABLET PO SCH ×2 (09:00→21:08)
[2018-06-18] MEDS: ENOXAPARIN 30MG/0.3ML SYR SUBCUT SCH (09:00)
[2018-06-18] MEDS: METOPROLOL TARTRATE 25MG TABLET PO SCH ×2 (09:00→21:07)
[2018-06-18] MEDS: SEVELAMER CARBONATE 800 MG TABLET PO SCH ×3 (09:11→18:37)
[2018-06-18] MEDS: ASPIRIN 325MG EC TABLET PO SCH (09:11)
[2018-06-18] MEDS: FOLIC ACID/VITAMIN B COMP W-C TABLET PO SCH (09:12)
[2018-06-18 12:00] VITALS: BP 174/98
[2018-06-18 16:00] VITALS: BP 185/101
[2018-06-18 20:00] VITALS: BP 167/86
[2018-06-18] MEDS ORDERED: EPOETIN ALFA 4000UNITS/ML VIAL SUBCUT SCH (21:00)
[2018-06-18] MEDS: FAMOTIDINE 20MG TABLET PO SCH (21:08)
[2018-06-19] VITALS: BP 134/69
[2018-06-19 04:00] VITALS: BP 151/81
[2018-06-19] MEDS: HYDRALAZINE HCL 50MG TABLET PO SCH (06:34)
[2018-06-19 07:14] LABS: BASOPHILS % 0.8 % (0.0-2.0); EOSINOPHILS % 5.1 % (0.0-5.0); HEMATOCRIT. 24.8 % (42.0-52.0); HEMOGLOBIN. 8.5 g/dL (14.0-18.0); LYMPHOCYTES % 12.6 % (20.0-50.0); MEAN CORPUSCULAR HEMOGLOBIN 34.5 pg (28.0-32.0); MEAN PLATELET VOLUME 8.8 fl (7.4-10.4); MONOCYTES % 11.9 % (2.0-8.0); NEUTROPHILS % 69.6 % (40.0-76.0); PLATELET 281 x1000/uL (130-400); RED BLOOD CELL COUNT 2.46 mill/uL (4.7-6.1); RED CELL DISTRIBUTION WIDTH 15.1 % (11.6-14.6)
[2018-06-19 08:00] VITALS: BP 157/88
[2018-06-19] MEDS: ENOXAPARIN 30MG/0.3ML SYR SUBCUT SCH (08:47)
[2018-06-19] MEDS: SEVELAMER CARBONATE 800 MG TABLET PO SCH (08:49)
[2018-06-19] MEDS: MINOXIDIL 2.5MG TABLET PO SCH (08:49)
[2018-06-19] MEDS: ASPIRIN 325MG EC TABLET PO SCH (08:50)
[2018-06-19] MEDS: METOPROLOL TARTRATE 25MG TABLET PO SCH (08:50)
[2018-06-19] MEDS: FOLIC ACID/VITAMIN B COMP W-C TABLET PO SCH (08:50)
[2018-06-19 10:15] VITALS: BP 154/74
[2018-07-05] MEDS ORDERED: LISI-186 MT ×2 (15:13→15:14)
[2018-07-05] MEDS ORDERED: COR3 MT (15:14)
[2018-07-05] MEDS ORDERED: CLON0.1T14 MT (15:15)
[2018-07-05] MEDS ORDERED: ATOR10TA MT (15:17)
== END 2018-06-19 11:30 | disposition home or self-care (01) | DRG 280 ==
LOC: ER 10:16 → 8WST 13:44 → EDBEDREQ 13:46 → ENRESERV 18:09 → CANRESERV 18:09 → ENRESERV 23:53
PROVIDERS: ADMIT Internal Medicine; ATTEND Internal Medicine
PROC: 5A1D70Z Performance of Urinary Filtration, Intermittent, Less than 6 Hours Per Day (ICD-10-PCS; principal; 2018-06-18)
DX: I21.4 Non-ST elevation (NSTEMI) myocardial infarction (principal); N18.6 End stage renal disease; E44.1 Mild protein-calorie malnutrition; I12.0 Hypertensive chronic kidney disease with stage 5 chronic kidney disease or end stage renal disease; I42.9 Cardiomyopathy, unspecified; I48.0 Paroxysmal atrial fibrillation; E83.51 Hypocalcemia; E87.6 Hypokalemia; D63.8 Anemia in other chronic diseases classified elsewhere; Z99.2 Dependence on renal dialysis; Z88.5 Allergy status to narcotic agent; Z79.82 Long term (current) use of aspirin; Z79.899 Other long term (current) drug therapy
CPT/HCPCS: 36415; 71045; 78582; 80048; 80061; 82550; 82553; 83036; 83735; 83880; 84484; 85379; 93005; 93970; 96374; 99285; A9558; J0885; J1650; J7030; J7620

== ENCOUNTER 2018-07-02 08:09 | Inpatient (IN) | payer MEDICARE, MEDICAID, OTHER ==
[~2018-07-02] VITALS: Ht 175.3 cm; Wt 85.9 kg
[2018-07-02] MEDS ORDERED: NITROGLYCERIN OINT 1GM/INCH UDPKT TD ONE (08:30)
[2018-07-02] MEDS ORDERED: DILTIAZEM HCL 5MG/ML 5ML VIAL IV ONE (08:45)
[2018-07-02 08:54] LABS: BASOPHILS % 1.3 % (0.0-2.0); EOSINOPHILS % 2.1 % (0.0-5.0); HEMATOCRIT. 31.2 % (42.0-52.0); HEMOGLOBIN. 10.4 g/dL (14.0-18.0); LYMPHOCYTES % 18.2 % (20.0-50.0); MEAN CORPUSCULAR HEMOGLOBIN 33.1 pg (28.0-32.0); MEAN CORPUSCULAR VOLUME 99.2 fL (80.0-94.0); MEAN PLATELET VOLUME 8.5 fl (7.4-10.4); MONOCYTES % 14.1 % (2.0-8.0); NEUTROPHILS % 64.3 % (40.0-76.0); PLATELET 251 x1000/uL (130-400); RED BLOOD CELL COUNT 3.15 mill/uL (4.7-6.1); RED CELL DISTRIBUTION WIDTH 15.7 % (11.6-14.6)
[2018-07-02 09:01] LABS: CHLORIDE 97 mEq/L (98-107)
[2018-07-02 09:05] LABS: INR 1.1; PROTHROMBIN TIME 10.8 sec (9.1-11.1)
[2018-07-02] MEDS ORDERED: GUAIFENESIN 200MG/10ML SUGAR FREE UDC PO PRN (13:45)
[2018-07-02] MEDS ORDERED: ACETAMINOPHEN 325MG TABLET PO PRN (13:45)
[2018-07-02] MEDS ORDERED: ONDANSETRON HCL 4MG/2ML INJ IV PRN (13:45)
[2018-07-02] MEDS ORDERED: DOCUSATE SODIUM 100MG CAPSULE PO PRN (13:45)
[2018-07-02] MEDS ORDERED: HYDROCODONE/ACETAMINOPHEN 5/325MG TABLET PO PRN (13:45)
[2018-07-02] MEDS ORDERED: ACETAMINOPHEN 650MG SUPP PR PRN (13:45)
[2018-07-02] MEDS ORDERED: ACETAMINOPHEN 650MG/20.3ML UDC GT PRN (13:45)
[2018-07-02] MEDS ORDERED: ENOXAPARIN 40MG/0.4ML SYR SUBCUT SCH (13:45)
[2018-07-02] MEDS ORDERED: IPRATROPIUM/ALBUTEROL 0.5-3(2.5)MG/3ML NEB INH PRN (13:45)
[2018-07-02] MEDS ORDERED: MAGNESIUM/ALUMINUM HYDROXIDE/SIMETHICONE 30ML UDC PO PRN (13:45)
[2018-07-02] MEDS ORDERED: DIPHENHYDRAMINE 50MG/ML VIAL IV PRN (13:45)
[2018-07-02] MEDS ORDERED: MEDICATION NOT ON FORMULARY EA (Diltiazem Hcl (Cardizem Cd) 1 CAP) PO SCH (14:00)
[2018-07-02] MEDS ORDERED: MEDICATION NOT ON FORMULARY EA (Aspirin (Aspirin Low Dose) 1 TAB) PO SCH (14:00)
[2018-07-02 16:00] LABS: CREATINE KINASE MB FRACTION 3.6 ng/mL (0.5-3.6)
[2018-07-02] MEDS ORDERED: ASPIRIN 325MG EC TABLET PO ONE (16:15)
[2018-07-02] MEDS ORDERED: ASPIRIN 81MG TABLET PO ONE (16:15)
[2018-07-02] MEDS ORDERED: ASPIRIN 81MG TABLET ONE (16:22)
[2018-07-02 21:10] VITALS: BP 159/82
[2018-07-02] MEDS ORDERED: NA PHOS,M-B/NA PHOS,DI-BA ENEMA 118ML PR PRN (21:24)
[2018-07-02] MEDS: CLONIDINE 0.1MG TABLET PO SCH (22:27)
[2018-07-02] MEDS: DILTIAZEM HCL 120MG CAPSULE CD 24HR PO SCH (22:27)
[2018-07-02] MEDS: FOLIC ACID/VITAMIN B COMP W-C TABLET PO SCH (22:27)
[2018-07-02] MEDS: SODIUM CHLORIDE 0.9% INJ 3ML FLUSH IVF SCH (22:28)
[2018-07-02 23:12] VITALS: BP 159/82
[2018-07-03] VITALS (8 sets, daily range): BP systolic 130–178; BP diastolic 72–103
[2018-07-03] MEDS: CLONIDINE 0.1MG TABLET PO SCH ×3 (05:09→20:41)
[2018-07-03] MEDS: CLONIDINE 0.1MG TABLET PO PRN ×2 (05:10→17:54)
[2018-07-03] MEDS: SODIUM CHLORIDE 0.9% INJ 3ML FLUSH IVF SCH ×3 (05:11→20:41)
[2018-07-03 07:20] LABS: BASOPHILS % 1.3 % (0.0-2.0); HEMATOCRIT. 28.5 % (42.0-52.0); HEMOGLOBIN. 9.5 g/dL (14.0-18.0); MEAN CORPUSCULAR VOLUME 101.8 fL (80.0-94.0); MEAN PLATELET VOLUME 8.5 fl (7.4-10.4); MONOCYTES % 12.7 % (2.0-8.0); PLATELET 228 x1000/uL (130-400); RED CELL DISTRIBUTION WIDTH 16.2 % (11.6-14.6)
[2018-07-03 07:27] LABS: CHLORIDE 95 mEq/L (98-107)
[2018-07-03 07:58] LABS: HDL CHOLESTEROL 62 mg/dL (40-59); LDL CHOLESTEROL 119 mg/dL (5-100)
[2018-07-03] MEDS: ENOXAPARIN 30MG/0.3ML SYR SUBCUT SCH (09:00)
[2018-07-03] MEDS: FOLIC ACID/VITAMIN B COMP W-C TABLET PO SCH (09:53)
[2018-07-03] MEDS: ASPIRIN 81MG TABLET PO SCH (09:53)
[2018-07-03] MEDS: DILTIAZEM HCL 120MG CAPSULE CD 24HR PO SCH (09:53)
[2018-07-03] MEDS: HYDRALAZINE HCL 25MG TABLET PO SCH (20:41)
[2018-07-04] VITALS: BP 143/88
[2018-07-04 04:30] VITALS: BP 147/98
[2018-07-04] MEDS: HYDRALAZINE HCL 25MG TABLET PO SCH ×3 (04:47→21:01)
[2018-07-04] MEDS: SODIUM CHLORIDE 0.9% INJ 3ML FLUSH IVF SCH ×3 (04:47→21:03)
[2018-07-04] MEDS: CLONIDINE 0.1MG TABLET PO SCH ×3 (04:47→14:07)
[2018-07-04 08:00] VITALS: BP 166/101
[2018-07-04] MEDS: ASPIRIN 81MG TABLET PO SCH (09:00)
[2018-07-04] MEDS: ENOXAPARIN 30MG/0.3ML SYR SUBCUT SCH ×2 (09:00→09:11)
[2018-07-04] MEDS: FOLIC ACID/VITAMIN B COMP W-C TABLET PO SCH (09:11)
[2018-07-04] MEDS: DILTIAZEM HCL 120MG CAPSULE CD 24HR PO SCH (09:13)
[2018-07-04 12:00] VITALS: BP 149/96
[2018-07-04 16:00] VITALS: BP 143/94
[2018-07-04 19:41] LABS: HEMATOCRIT. 28.3 % (42.0-52.0); HEMOGLOBIN. 9.3 g/dL (14.0-18.0); MEAN CORPUSCULAR HEMOGLOBIN 32.7 pg (28.0-32.0); MEAN CORPUSCULAR VOLUME 99.5 fL (80.0-94.0); MEAN PLATELET VOLUME 8.7 fl (7.4-10.4); PLATELET 217 x1000/uL (130-400); RED BLOOD CELL COUNT 2.85 mill/uL (4.7-6.1); RED CELL DISTRIBUTION WIDTH 15.6 % (11.6-14.6)
[2018-07-04 19:51] LABS: CHLORIDE 95 mEq/L (98-107)
[2018-07-04 20:00] VITALS: BP 168/105
[2018-07-04 22:30] LABS: PLATELET ESTIMATE NORMAL
[2018-07-05] VITALS (8 sets, daily range): BP systolic 160–189; BP diastolic 90–111
[2018-07-05] MEDS: CLONIDINE 0.1MG TABLET PO PRN (00:26)
[2018-07-05] MEDS: CLONIDINE 0.1MG TABLET PO SCH ×4 (05:34→21:34)
[2018-07-05] MEDS: HYDRALAZINE HCL 25MG TABLET PO SCH ×4 (05:35→21:34)
[2018-07-05] MEDS: SODIUM CHLORIDE 0.9% INJ 3ML FLUSH IVF SCH ×3 (05:36→21:35)
[2018-07-05] MEDS ORDERED: REGADENOSON 0.4 MG/5 ML IV ONE ×2 (07:30→09:58)
[2018-07-05] MEDS: FOLIC ACID/VITAMIN B COMP W-C TABLET PO SCH ×2 (09:00→11:55)
[2018-07-05] MEDS: ASPIRIN 81MG TABLET PO SCH ×2 (09:00→11:56)
[2018-07-05] MEDS: DILTIAZEM HCL 120MG CAPSULE CD 24HR PO SCH ×2 (09:00→11:56)
[2018-07-05] MEDS: ENOXAPARIN 30MG/0.3ML SYR SUBCUT SCH (09:00)
[2018-07-05] MEDS ORDERED: BENAZEPRIL 5MG TABLET PO SCH (15:00)
[2018-07-05] MEDS ORDERED: LISI-186 MT ×2 (15:13→15:14)
[2018-07-05] MEDS ORDERED: COR3 MT (15:14)
[2018-07-05] MEDS ORDERED: CLON0.1T14 MT (15:15)
[2018-07-05] MEDS ORDERED: ATOR10TA MT (15:17)
[2018-07-05 15:43] LABS: BASOPHILS % 1.2 % (0.0-2.0); HEMATOCRIT. 26.9 % (42.0-52.0); HEMOGLOBIN. 9.1 g/dL (14.0-18.0); LYMPHOCYTES % 16.2 % (20.0-50.0); MEAN CORPUSCULAR HEMOGLOBIN 34.4 pg (28.0-32.0); MEAN CORPUSCULAR VOLUME 101.5 fL (80.0-94.0); MEAN PLATELET VOLUME 8.6 fl (7.4-10.4); MONOCYTES % 12.2 % (2.0-8.0); NEUTROPHILS % 66.4 % (40.0-76.0); PLATELET 233 x1000/uL (130-400); RED BLOOD CELL COUNT 2.65 mill/uL (4.7-6.1); RED CELL DISTRIBUTION WIDTH 15.5 % (11.6-14.6)
[2018-07-05 15:44] LABS: CHLORIDE 93 mEq/L (98-107)
[2018-07-05] MEDS: CARVEDILOL 3.125 MG TABLET PO SCH ×2 (16:19→20:20)
[2018-07-05] MEDS: BENAZEPRIL 5MG TABLET PO SCH (20:21)
[2018-07-05] MEDS ORDERED: ATORVASTATIN CALCIUM 10MG TABLET PO SCH (21:00)
[2018-07-06] VITALS: BP 156/93
[2018-07-06 04:00] VITALS: BP 155/100
[2018-07-06] MEDS: CLONIDINE 0.1MG TABLET PO SCH ×2 (05:17→13:35)
[2018-07-06] MEDS: SODIUM CHLORIDE 0.9% INJ 3ML FLUSH IVF SCH (05:17)
[2018-07-06] MEDS: HYDRALAZINE HCL 25MG TABLET PO SCH ×2 (05:17→13:35)
[2018-07-06 07:37] VITALS: BP 142/87
[2018-07-06 08:00] VITALS: BP 176/96
[2018-07-06] MEDS: ENOXAPARIN 30MG/0.3ML SYR SUBCUT SCH ×2 (09:00→09:16)
[2018-07-06] MEDS: ASPIRIN 81MG TABLET PO SCH (09:12)
[2018-07-06] MEDS: DILTIAZEM HCL 120MG CAPSULE CD 24HR PO SCH (09:13)
[2018-07-06] MEDS: CARVEDILOL 3.125 MG TABLET PO SCH (09:14)
[2018-07-06] MEDS: FOLIC ACID/VITAMIN B COMP W-C TABLET PO SCH (09:15)
[2018-07-06] MEDS: BENAZEPRIL 5MG TABLET PO SCH (09:15)
[2018-07-06 12:00] VITALS: BP_SYST 165; BP_SYST 167; BP_DIAS 95
[2018-07-06] MEDS: CLONIDINE 0.1MG TABLET PO PRN (12:44)
[2018-07-06 13:33] VITALS: BP 142/87
== END 2018-07-06 15:50 | disposition home or self-care (01) | DRG 280 ==
LOC: ER 08:09 → 8WST 09:49 → EDBEDREQ 09:50 → EDBEDREQTM 09:50 → CANBEDREQ 10:45 → ENRESERV 16:29 → CANRESERV 16:29 → ENRESERV 18:01
PROVIDERS: ADMIT Family Medicine; ATTEND Family Medicine
PROC: 5A1D70Z Performance of Urinary Filtration, Intermittent, Less than 6 Hours Per Day (ICD-10-PCS; principal; 2018-07-05)
DX: I21.4 Non-ST elevation (NSTEMI) myocardial infarction (principal); N18.6 End stage renal disease; I13.11 Hypertensive heart and chronic kidney disease without heart failure, with stage 5 chronic kidney disease, or end stage renal disease; I48.0 Paroxysmal atrial fibrillation; B19.20 Unspecified viral hepatitis C without hepatic coma; D64.9 Anemia, unspecified; Z99.2 Dependence on renal dialysis; Z86.73 Personal history of transient ischemic attack (TIA), and cerebral infarction without residual deficits; Z88.5 Allergy status to narcotic agent; Z79.899 Other long term (current) drug therapy; Z79.82 Long term (current) use of aspirin
CPT/HCPCS: 36415; 71045; 78452; 80061; 82550; 82553; 83880; 84484; 93005; 93017; 93306; 96374; 99285; A9500; J1650; J2785; J3490

== ENCOUNTER 2018-07-31 06:08 | Inpatient (IN) | payer MEDICARE, MEDICAID ==
[~2018-07-31] VITALS: Ht 172.7 cm; Wt 82.6 kg
[~2018-07-31 06:08] MED LIST changes: +ATOR10TA MT; +COR3 MT; +LISI-186 MT
[2018-07-31] MEDS ORDERED: ALBUTEROL (0.083%) 2.5MG/3ML NEB HHN ONE (07:00)
[2018-07-31] MEDS ORDERED: ASPIRIN 81MG TABLET PO ONE (07:00)
[2018-07-31] MEDS ORDERED: NITROGLYCERIN 0.4MG TABLET SL SL PRN ×2 (07:00→14:30)
[2018-07-31] MEDS ORDERED: HYDRALAZINE 20MG/ML VIAL IV ONE ×3 (07:00→12:00)
[2018-07-31] MEDS ORDERED: DILTIAZEM HCL 5MG/ML 5ML VIAL IV ONE ×2 (07:15→09:45)
[2018-07-31 07:33] LABS: HEMATOCRIT. 31.8 % (42.0-52.0); HEMOGLOBIN. 10.4 g/dL (14.0-18.0); PLATELET 286 x1000/uL (130-400); RED BLOOD CELL COUNT 3.25 mill/uL (4.7-6.1); RED CELL DISTRIBUTION WIDTH 15.3 % (11.6-14.6)
[2018-07-31 07:34] LABS: CHLORIDE 95 mEq/L (98-107)
[2018-07-31 07:35] LABS: INR 1.1; PROTHROMBIN TIME 11.1 sec (9.1-11.1)
[2018-07-31 08:19] LABS: PLATELET ESTIMATE NORMAL
[2018-07-31] MEDS ORDERED: ACETAMINOPHEN 325MG TABLET PO ONE (09:45)
[2018-07-31] MEDS ORDERED: DILTIAZEM HCL 125 MG in DEXT 5% WATER 100 ML IV ONE ×3 (09:45→18:00)
[2018-07-31] MEDS ORDERED: DILTIAZEM HCL 60MG TABLET PO ONE (09:45)
[2018-07-31] MEDS ORDERED: DILTIAZEM HCL 60MG TABLET PO NR (10:30)
[2018-07-31] MEDS ORDERED: NITROGLYCERIN 0.1MG/HR PATCH TOP ONE (12:00)
[2018-07-31] MEDS ORDERED: MAGNESIUM/ALUMINUM HYDROXIDE/SIMETHICONE 30ML UDC PO PRN (14:30)
[2018-07-31] MEDS ORDERED: LORAZEPAM 0.5MG TABLET PO PRN (14:30)
[2018-07-31] MEDS ORDERED: ACETAMINOPHEN 325MG TABLET PO PRN (14:30)
[2018-07-31] MEDS ORDERED: CLONIDINE 0.1MG TABLET PO PRN (14:30)
[2018-07-31] MEDS ORDERED: ZOLPIDEM TARTRATE 5MG TABLET PO PRN (14:30)
[2018-07-31] MEDS ORDERED: DIPHENHYDRAMINE 50MG/ML VIAL IV PRN (14:30)
[2018-07-31] MEDS ORDERED: ONDANSETRON HCL 4MG/2ML INJ IV PRN (14:30)
[2018-07-31] MEDS ORDERED: DOCUSATE SODIUM 100MG CAPSULE PO PRN (14:30)
[2018-07-31] MEDS ORDERED: DILTIAZEM HCL 125 MG in DEXT 5% WATER 100 ML IV SCH (18:00)
[2018-07-31] MEDS: TRAMADOL 50MG TABLET PO PRN (19:48)
[2018-07-31] MEDS: SEVELAMER CARBONATE 800 MG TABLET PO SCH (21:15)
[2018-07-31] MEDS: ATORVASTATIN CALCIUM 10MG TABLET PO SCH (21:15)
[2018-07-31] MEDS: HYDRALAZINE HCL 50MG TABLET PO SCH (21:15)
[2018-07-31] MEDS: GUAIFENESIN 200MG/10ML SUGAR FREE UDC PO PRN (21:15)
[2018-07-31] MEDS: MINOXIDIL 2.5MG TABLET PO SCH (21:16)
[2018-07-31] MEDS: IPRATROPIUM/ALBUTEROL 0.5-3(2.5)MG/3ML NEB INH PRN (21:40)
[2018-07-31 22:00] VITALS: BP 178/104
[2018-07-31] MEDS: DILTIAZEM HCL 60MG TABLET PO SCH (23:20)
[2018-07-31] MEDS: METOPROLOL TARTRATE 25MG TABLET PO SCH (23:20)
[2018-07-31] MEDS: ENOXAPARIN 30MG/0.3ML SYR SUBCUT SCH (23:21)
[2018-07-31 23:35] LABS: CREATINE KINASE MB FRACTION 6.6 ng/mL (0.5-3.6)
[2018-08-01] VITALS (13 sets, daily range): BP systolic 141–196; BP diastolic 74–112
[2018-08-01] MEDS: IPRATROPIUM/ALBUTEROL 0.5-3(2.5)MG/3ML NEB INH PRN ×2 (00:40→12:57)
[2018-08-01] MEDS: GUAIFENESIN 200MG/10ML SUGAR FREE UDC PO PRN ×6 (01:37→19:05)
[2018-08-01] MEDS: HYDRALAZINE HCL 50MG TABLET PO SCH ×3 (06:10→21:13)
[2018-08-01] MEDS: DILTIAZEM HCL 60MG TABLET PO SCH ×3 (06:10→17:58)
[2018-08-01 06:44] LABS: CREATINE KINASE MB FRACTION 6.2 ng/mL (0.5-3.6)
[2018-08-01] MEDS: METOPROLOL TARTRATE 25MG TABLET PO SCH ×2 (08:57→21:13)
[2018-08-01] MEDS: ASPIRIN 325MG EC TABLET PO SCH (08:57)
[2018-08-01] MEDS: FOLIC ACID/VITAMIN B COMP W-C TABLET PO SCH (08:57)
[2018-08-01] MEDS: FAMOTIDINE 20MG TABLET PO SCH (08:57)
[2018-08-01] MEDS: MINOXIDIL 2.5MG TABLET PO SCH ×2 (08:57→21:12)
[2018-08-01] MEDS: SEVELAMER CARBONATE 800 MG TABLET PO SCH ×3 (08:57→17:56)
[2018-08-01] MEDS ORDERED: AMLODIPINE 10MG TABLET PO SCH (09:00)
[2018-08-01] MEDS: TRAMADOL 50MG TABLET PO PRN (09:10)
[2018-08-01 10:36] LABS: LDL CHOLESTEROL 80 mg/dL (5-100)
[2018-08-01 10:37] LABS: HDL CHOLESTEROL 43 mg/dL (40-59)
[2018-08-01 10:38] LABS: T4 FREE 1.66 ng/dL (0.76-1.46)
[2018-08-01] MEDS: GUAIFENESIN 600MG ER TABLET PO SCH ×2 (11:18→21:13)
[2018-08-01] MEDS ORDERED: HYDROCODONE/ACETAMINOPHEN 5/325MG TABLET PO PRN (13:15)
[2018-08-01] MEDS: ATORVASTATIN CALCIUM 10MG TABLET PO SCH (21:00)
[2018-08-01] MEDS: ENOXAPARIN 30MG/0.3ML SYR SUBCUT SCH (21:17)
[2018-08-02] VITALS (12 sets, daily range): BP systolic 133–163; BP diastolic 69–113
[2018-08-02] MEDS: DILTIAZEM HCL 60MG TABLET PO SCH ×4 (01:17→18:28)
[2018-08-02] MEDS: GUAIFENESIN 200MG/10ML SUGAR FREE UDC PO PRN ×4 (03:11→21:58)
[2018-08-02] MEDS: HYDRALAZINE HCL 50MG TABLET PO SCH ×3 (05:38→21:40)
[2018-08-02 07:02] LABS: HEMATOCRIT 29.4 % (42.0-52.0); HEMOGLOBIN 9.7 g/dL (14.0-18.0); MEAN CORPUSCULAR HEMOGLOBIN 32.7 pg (28.0-32.0); MEAN CORPUSCULAR VOLUME 98.7 fL (80.0-94.0); PLATELET 299 x1000/uL (130-400); RED BLOOD CELL COUNT 2.97 mill/uL (4.7-6.1); RED CELL DISTRIBUTION WIDTH 15.2 % (11.6-14.6)
[2018-08-02] MEDS: METOPROLOL TARTRATE 25MG TABLET PO SCH ×2 (08:04→21:39)
[2018-08-02] MEDS: SEVELAMER CARBONATE 800 MG TABLET PO SCH ×3 (08:04→18:26)
[2018-08-02] MEDS: ASPIRIN 325MG EC TABLET PO SCH (08:04)
[2018-08-02] MEDS: FOLIC ACID/VITAMIN B COMP W-C TABLET PO SCH (08:04)
[2018-08-02] MEDS: FAMOTIDINE 20MG TABLET PO SCH (08:04)
[2018-08-02] MEDS: MINOXIDIL 2.5MG TABLET PO SCH ×2 (08:05→21:40)
[2018-08-02] MEDS: GUAIFENESIN 600MG ER TABLET PO SCH ×2 (08:05→21:39)
[2018-08-02] MEDS: ATORVASTATIN CALCIUM 10MG TABLET PO SCH (21:00)
[2018-08-02] MEDS: ENOXAPARIN 30MG/0.3ML SYR SUBCUT SCH (21:42)
[2018-08-03] VITALS (12 sets, daily range): BP systolic 119–169; BP diastolic 63–97
[2018-08-03] MEDS: DILTIAZEM HCL 60MG TABLET PO SCH ×4 (00:09→17:13)
[2018-08-03] MEDS: HYDRALAZINE HCL 50MG TABLET PO SCH ×2 (05:50→14:39)
[2018-08-03] MEDS: GUAIFENESIN 600MG ER TABLET PO SCH (08:01)
[2018-08-03] MEDS: FAMOTIDINE 20MG TABLET PO SCH (08:01)
[2018-08-03] MEDS: METOPROLOL TARTRATE 25MG TABLET PO SCH (08:01)
[2018-08-03] MEDS: ASPIRIN 325MG EC TABLET PO SCH (08:01)
[2018-08-03] MEDS: FOLIC ACID/VITAMIN B COMP W-C TABLET PO SCH (08:01)
[2018-08-03] MEDS: SEVELAMER CARBONATE 800 MG TABLET PO SCH ×3 (08:01→17:13)
[2018-08-03] MEDS: MINOXIDIL 2.5MG TABLET PO SCH (08:02)
== END 2018-08-03 20:15 | DRG 280 ==
LOC: ER 06:08 → 5EST 09:48 → EDBEDREQ 09:53 → EDBEDREQSVC 09:53 → EDBEDREQTM 09:53 → ENRESERV 19:43
PROVIDERS: ADMIT Internal Medicine; ATTEND Internal Medicine
PROC: 5A1D70Z Performance of Urinary Filtration, Intermittent, Less than 6 Hours Per Day (ICD-10-PCS; principal; 2018-07-31)
PROC: 5A1D70Z Performance of Urinary Filtration, Intermittent, Less than 6 Hours Per Day (ICD-10-PCS; 2018-08-01)
PROC: 5A1D70Z Performance of Urinary Filtration, Intermittent, Less than 6 Hours Per Day (ICD-10-PCS; 2018-08-03)
DX: I21.4 Non-ST elevation (NSTEMI) myocardial infarction (principal); I50.33 Acute on chronic diastolic (congestive) heart failure; N18.6 End stage renal disease; I13.2 Hypertensive heart and chronic kidney disease with heart failure and with stage 5 chronic kidney disease, or end stage renal disease; I16.1 Hypertensive emergency; B19.20 Unspecified viral hepatitis C without hepatic coma; R74.8 Abnormal levels of other serum enzymes; D63.8 Anemia in other chronic diseases classified elsewhere; I48.0 Paroxysmal atrial fibrillation; E78.00 Pure hypercholesterolemia, unspecified; Z86.73 Personal history of transient ischemic attack (TIA), and cerebral infarction without residual deficits; Z99.2 Dependence on renal dialysis
CPT/HCPCS: 36415; 71045; 80048; 80061; 82550; 82553; 83036; 83880; 84439; 84443; 84484; 85027; 85379; 87804; 93005; 93306; 93970; 94640; 96374; 96375; 97162; 97166; 99291; J0360; J1650; J3490; J7060; J7611; J7620

== ENCOUNTER 2018-08-18 22:19 | Inpatient (IN) | payer MEDICARE, MEDICAID ==
[~2018-08-18] VITALS: Ht 175.3 cm; Wt 93.1 kg
[2018-08-19] MEDS ORDERED: ASPIRIN 81MG TABLET PO ONE (01:45)
[2018-08-19 01:50] LABS: CHLORIDE 99 mEq/L (98-107)
[2018-08-19 01:51] LABS: BASOPHILS % 0.9 % (0.0-2.0); EOSINOPHILS % 3.4 % (0.0-5.0); LYMPHOCYTES % 12.7 % (20.0-50.0); MEAN CORPUSCULAR HEMOGLOBIN 32.7 pg (28.0-32.0); MEAN CORPUSCULAR VOLUME 98.7 fL (80.0-94.0); MEAN PLATELET VOLUME 8.3 fl (7.4-10.4); MONOCYTES % 9.2 % (2.0-8.0); NEUTROPHILS % 73.8 % (40.0-76.0); PLATELET 283 x1000/uL (130-400); RED BLOOD CELL COUNT 2.74 mill/uL (4.7-6.1); RED CELL DISTRIBUTION WIDTH 16.8 % (11.6-14.6)
[2018-08-19 01:54] LABS: INR 1.1; PARTIAL THROMBOPLASTIN TIME 35.5 sec (23.4-31.0); PROTHROMBIN TIME 11.1 sec (9.1-11.1)
[2018-08-19] MEDS ORDERED: SODIUM POLYSTYRENE SULFONATE 15 G/60 ML BOT PO ONE (02:15)
[2018-08-19] MEDS ORDERED: ALBUTEROL (0.083%) 2.5MG/3ML NEB HHN ONE (02:15)
[2018-08-19] MEDS ORDERED: SODIUM BICARBONATE 8.4% 1 MEQ/ML 50ML SYR IV ONE (02:15)
[2018-08-19] MEDS ORDERED: CALCIUM CHLORIDE 1GM/10ML SYR IV ONE (02:15)
[2018-08-19] MEDS ORDERED: DEXTROSE 50% WATER 50ML SYRINGE IV ONE (02:15)
[2018-08-19] MEDS ORDERED: INSULIN REGULAR (HUMULIN R) 300UNITS/3ML IV ONE (02:15)
[2018-08-19] MEDS ORDERED: ALBUTEROL (0.5%) 2.5MG/0.5ML NEB HHN ONE (02:29)
[2018-08-19] MEDS ORDERED: HYDRALAZINE 20MG/ML VIAL IV ONE ×2 (04:45→09:45)
[2018-08-19] MEDS ORDERED: CLONIDINE 0.2MG TABLET PO ONE (07:15)
[2018-08-19] MEDS ORDERED: ACETAMINOPHEN 325MG TABLET PO PRN (09:45)
[2018-08-19] MEDS ORDERED: HYDRALAZINE 20MG/ML VIAL IV PRN ×2 (09:45→16:45)
[2018-08-19] MEDS ORDERED: ONDANSETRON HCL 4MG/2ML INJ IV PRN (09:45)
[2018-08-19] MEDS ORDERED: NIFEDIPINE XL 60MG TAB PO SCH (10:00)
[2018-08-19] MEDS ORDERED: HYDRALAZINE HCL 50MG TABLET PO SCH (14:00)
[2018-08-19 16:30] VITALS: BP 207/111
[2018-08-19 16:45] VITALS: BP_SYST 209; BP_DIAS 11; BP_DIAS 111
[2018-08-19] MEDS ORDERED: CLONIDINE 0.1MG TABLET PO PRN (17:30)
[2018-08-19] MEDS ORDERED: MEDICATION NOT ON FORMULARY EA (Hydralazine Hcl 1 TAB) PO SCH (17:30)
[2018-08-19] MEDS ORDERED: HYDROCODONE/ACETAMINOPHEN 10/325MG TABLET PO PRN (17:45)
[2018-08-19] MEDS ORDERED: HYDROCODONE/ACETAMINOPHEN 5/325MG TABLET PO PRN (17:45)
[2018-08-19] MEDS: FOLIC ACID/VITAMIN B COMP W-C TABLET PO SCH (17:49)
[2018-08-19] MEDS: CARVEDILOL 3.125 MG TABLET PO SCH (17:49)
[2018-08-19 18:35] VITALS: BP 192/100
[2018-08-19 19:40] VITALS: BP 189/102
[2018-08-19 20:01] VITALS: BP 189/102
[2018-08-19] MEDS: EPOETIN ALFA 10000UNITS/ML VIAL SUBCUT SCH (21:00)
[2018-08-19] MEDS ORDERED: EPOETIN ALFA 10000UNITS/ML VIAL SUBCUT SCH (21:00)
[2018-08-19] MEDS: ATORVASTATIN CALCIUM 10MG TABLET PO SCH (21:42)
[2018-08-19] MEDS: HYDRALAZINE HCL 50MG TABLET PO SCH (23:49)
[2018-08-19] MEDS: NIFEDIPINE XL 60MG TAB PO SCH (23:50)
[2018-08-20] VITALS (9 sets, daily range): BP systolic 146–206; BP diastolic 82–105
[2018-08-20] MEDS: CLONIDINE 0.1MG TABLET PO PRN (01:16)
[2018-08-20] MEDS: HYDRALAZINE HCL 50MG TABLET PO SCH (06:22)
[2018-08-20 07:31] LABS: BASOPHILS % 0.9 % (0.0-2.0); EOSINOPHILS % 3.3 % (0.0-5.0); HEMATOCRIT. 25.2 % (42.0-52.0); HEMOGLOBIN. 8.4 g/dL (14.0-18.0); LYMPHOCYTES % 11.4 % (20.0-50.0); MEAN CORPUSCULAR HEMOGLOBIN 32.5 pg (28.0-32.0); MEAN CORPUSCULAR VOLUME 97.1 fL (80.0-94.0); MONOCYTES % 8.9 % (2.0-8.0); NEUTROPHILS % 75.5 % (40.0-76.0); PLATELET 262 x1000/uL (130-400); RED BLOOD CELL COUNT 2.59 mill/uL (4.7-6.1); RED CELL DISTRIBUTION WIDTH 17.1 % (11.6-14.6)
[2018-08-20] MEDS: CARVEDILOL 3.125 MG TABLET PO SCH (08:57)
[2018-08-20] MEDS: ASPIRIN 81MG TABLET PO SCH (08:57)
[2018-08-20] MEDS: NIFEDIPINE XL 60MG TAB PO SCH ×2 (08:58→20:11)
[2018-08-20] MEDS: FOLIC ACID/VITAMIN B COMP W-C TABLET PO SCH (08:58)
[2018-08-20] MEDS ORDERED: ASPIRIN 81MG TABLET PO SCH (09:00)
[2018-08-20] MEDS ORDERED: DILTIAZEM HCL 120MG CAPSULE CD 24HR PO SCH (09:00)
[2018-08-20] MEDS ORDERED: MEDICATION NOT ON FORMULARY EA (Aspirin (Aspirin Low Dose) 1 TAB) PO SCH (09:00)
[2018-08-20] MEDS: HYDRALAZINE HCL 100MG TABLET PO SCH ×2 (13:26→22:27)
[2018-08-20] MEDS: ATORVASTATIN CALCIUM 10MG TABLET PO SCH (20:10)
[2018-08-20] MEDS: METOPROLOL TARTRATE 25MG TABLET PO SCH (20:11)
[2018-08-21] VITALS (8 sets, daily range): BP systolic 121–173; BP diastolic 77–97
[2018-08-21] MEDS: CLONIDINE 0.1MG TABLET PO PRN ×2 (00:45→04:30)
[2018-08-21] MEDS: HYDRALAZINE HCL 100MG TABLET PO SCH ×2 (05:55→15:26)
[2018-08-21 07:32] LABS: BASOPHILS % 1.3 % (0.0-2.0); EOSINOPHILS % 4.2 % (0.0-5.0); HEMATOCRIT. 24.4 % (42.0-52.0); HEMOGLOBIN. 8.1 g/dL (14.0-18.0); MEAN CORPUSCULAR HEMOGLOBIN 32.1 pg (28.0-32.0); MEAN CORPUSCULAR VOLUME 96.3 fL (80.0-94.0); MEAN PLATELET VOLUME 8.7 fl (7.4-10.4); MONOCYTES % 10.4 % (2.0-8.0); NEUTROPHILS % 68.1 % (40.0-76.0); PLATELET 230 x1000/uL (130-400); RED BLOOD CELL COUNT 2.53 mill/uL (4.7-6.1); RED CELL DISTRIBUTION WIDTH 16.2 % (11.6-14.6)
[2018-08-21] MEDS: METOPROLOL TARTRATE 25MG TABLET PO SCH ×2 (09:17→20:19)
[2018-08-21] MEDS ORDERED: HYDR100T26 PO (11:42)
[2018-08-21] MEDS ORDERED: NIFE60TA64 PO (11:42)
[2018-08-21] MEDS: ASPIRIN 81MG TABLET PO SCH (15:24)
[2018-08-21] MEDS: FOLIC ACID/VITAMIN B COMP W-C TABLET PO SCH (15:25)
[2018-08-21] MEDS: NIFEDIPINE XL 60MG TAB PO SCH ×2 (15:25→20:19)
[2018-08-21] MEDS: ATORVASTATIN CALCIUM 10MG TABLET PO SCH (20:18)
[2018-08-21] MEDS: EPOETIN ALFA 10000UNITS/ML VIAL SUBCUT SCH (21:00)
== END 2018-08-21 21:45 | disposition home or self-care (01) | DRG 291 ==
LOC: ER 22:19 → 6WST 08-19 04:11 → ENRESERV 08-19 13:50 → ER 08-19 16:30
PROVIDERS: ADMIT Internal Medicine; ATTEND Internal Medicine
PROC: 5A1D70Z Performance of Urinary Filtration, Intermittent, Less than 6 Hours Per Day (ICD-10-PCS; principal; 2018-08-19)
PROC: 5A1D70Z Performance of Urinary Filtration, Intermittent, Less than 6 Hours Per Day (ICD-10-PCS; 2018-08-20)
DX: I13.2 Hypertensive heart and chronic kidney disease with heart failure and with stage 5 chronic kidney disease, or end stage renal disease (principal); N18.6 End stage renal disease; I50.33 Acute on chronic diastolic (congestive) heart failure; E44.1 Mild protein-calorie malnutrition; I16.0 Hypertensive urgency; D63.8 Anemia in other chronic diseases classified elsewhere; E87.5 Hyperkalemia; I48.0 Paroxysmal atrial fibrillation; Z91.19 Patient's noncompliance with other medical treatment and regimen; Z99.2 Dependence on renal dialysis; Z79.899 Other long term (current) drug therapy; Z79.1 Long term (current) use of non-steroidal anti-inflammatories (NSAID); Z68.30 Body mass index [BMI] 30.0-30.9, adult
CPT/HCPCS: 36415; 71045; 80048; 83880; 84484; 93005; 93970; 94640; 96374; 96375; 99285; J0360; J0885; J3490; J7611